=== PATIENT | male | born 1960 | race Two or more races ===

== ENCOUNTER 2016-11-12 13:51 | Emergency (ER) | payer OTHER ==
[2016-11-12 14:08] VITALS: BP 140/71; PULSE 55; TEMP 98.1; BMI 30.5
--- NOTE | 2016-11-12 14:28 | PDOC ---
History of Present Illness - General History Source: Patient Exam Limitations: No Limitations - History of Present Illness Initial Comments: 11/12/16 16:31 The patient is a 56 year old male, here with , with no significant past medical history who presents to the emergency department with rectal bleeding and fatigue after drinking a couple of days. He denies any complaints of pain. He reports his bowel movements are brown, but noted seeing blood after wiping on tissue paper today The patient reports also having complaints of feeling tired for the past 2 days after playing sports. He denies any recent fevers, chills, headache or dizziness. He denies any recent nausea, vomit, diarrhea or constipation. He denies any recent exertional chest pain or shortness of breath. Allergies: NKA Past surgical history: None reported. Social History: Nonsmoker. Denies recreational drug use. Primary Care Physician: Not on Staff <Santy Messina - Last Filed: 11/12/16 16:31> <Andrés Albright - Last Filed: 11/17/16 18:45> - General Chief Complaint: Rectal Bleed Stated Complaint: SICK Time Seen by Provider: 11/12/16 14:14 Past History <Santy Messina - Last Filed: 11/12/16 16:31> - Past Medical History GI Disorders: Yes Liver Disease: Yes - Psycho/Social/Smoking Cessation Hx Suicidal Ideation: No Smoking History: Never smoked Hx Alcohol Use: Yes Drug/Substance Use Hx: No Substance Use Type: Alcohol <Andrés Albright - Last Filed: 11/17/16 18:45> - Past Medical History Allergies/Adverse Reactions: Allergies Allergy/AdvReac Type Severity Reaction Status Date / Time No Known Allergies Allergy Verified 11/12/16 13:58 Home Medications: Ambulatory Orders NK [No Known Home Medication] 11/12/16 Review of Systems - Review of Systems Able to Perform ROS?: Yes Comments:: 11/12/16 16:31 CONSTITUTIONAL: +Generalized Weakness. No reported: Fever, Chills, Diaphoresis, Malaise, Loss of Appetite HEENT: No reported: Rhinorrhea, Nasal Congestion, Throat Pain, Throat Swelling, Difficulty Swallowing, Mouth Swelling, Ear Pain, Eye Pain, Visual Changes CARDIOVASCULAR: No reported: Chest Pain, Syncope, Palpitations, Irregular Heart Rate, Lightheadedness, Peripheral Edema RESPIRATORY: No reported: Cough, Shortness of Breath, SOB with Exertion, Orthopnea, Wheezing , Stridor, Hemoptysis GASTROINTESTINAL: No reported: Abdominal pain, Abdominal Distension, Nausea, Vomiting, Diarrhea, Constipation, Melena, Hematochezia GENITOURINARY: +rectal bleeding. No reported: Dysuria, Frequency, Urgency, Hesitancy, Flank Pain, Genital Pain MUSCULOSKELETAL: No reported: Myalgia, Arthralgia, Joint Swelling, Back pain, Neck Pain SKIN: No reported: Rash, Itching, Pallor HEMATOLOGIC/IMMUNOLOGIC: No reported: Easy Bleeding, Easy Bruising, Lymphadenopathy, Frequent infections ENDOCRINE: No reported: Unexplained Weight Gain, Unexplained Weight Loss, Heat Intolerance , Cold Intolerance NEUROLOGIC: No reported: Headache, Focal Weakness, Paresthesias, Vertigo, Lightheadedness, Unsteady Gait, Seizure, Mental Status Changes, Incontinence PSYCHIATRIC: No reported: Anxiety, Depression <Santy Messina - Last Filed: 11/12/16 16:31> *Physical Exam - Vital Signs Last Vital Signs Temp Pulse Resp BP Pulse Ox 98.1 F 55 L 18 140/71 99 11/12/16 13:55 11/12/16 13:55 11/12/16 13:55 11/12/16 13:55 11/12/16 13:55 - Physical Exam Comments: 11/12/16 16:31 GENERAL: The patient is awake, alert, and fully oriented, Nontoxic - in no acute distress. HEAD: Normocephalic, atraumatic. EYES: extraocular movements intact, sclera anicteric, conjunctiva clear. ENT: Normal voice, Moist mucous membranes. NECK: Normal range of motion, supple LUNGS: Breath sounds equal, clear to auscultation bilaterally. No wheezes, no rhonchi, no rales. HEART: Regular rate and rhythm, without murmur, rub or gallop. ABDOMEN: Soft, nontender, normoactive bowel sounds. No guarding, no rebound.No CVA tenderness RECTAL: No external hemorrhoids. No stool in the vault. EXTREMITIES: Normal range of motion, no edema. No clubbing or cyanosis. No cords , erythema, or tenderness. NEUROLOGICAL: No facial asymmetry, Normal speech. PSYCH: Normal mood, normal affect. SKIN: Warm, Dry, normal turgor. <Santy Messina - Last Filed: 11/12/16 16:31> - Vital Signs Last Vital Signs Temp Pulse Resp BP Pulse Ox 98.1 F 55 L 18 140/71 99 11/12/16 13:55 11/12/16 13:55 11/12/16 13:55 11/12/16 13:55 11/12/16 13:55 <Andrés Albright - Last Filed: 11/17/16 18:45> Heart Score/ECG Review - ECG Impressions Comment:: 11/12/16 16:47 Twelve-lead EKG was performed and reviewed by me. There is normal sinus rhythm with a rate of 54 T wave in lead 3 <Andrés Albright - Last Filed: 11/17/16 18:45> ED Treatment Course - LABORATORY CBC & Chemistry Diagram: 11/12/16 14:45 11/12/16 14:45 - ADDITIONAL ORDERS Additional order review: Laboratory Results 11/12/16 14:35 Stool Occult Blood Negative <Santy Messina - Last Filed: 11/12/16 16:31> - LABORATORY CBC & Chemistry Diagram: 11/12/16 14:45 11/12/16 14:45 <Andrés Albright - Last Filed: 11/17/16 18:45> Medical Decision Making - Medical Decision Making 11/12/16 14:29 56y M no known pmhx presents with complaint of feeling generally weak the past few days especially when he is playing sports. THe pt mentions drinking alot last weekend, and today he noticed some blood on his tissue when he was cleaning after a normal BM (no signs of melena/blood in the stool). Pt also endorses mild dysuria - no associated, cp, sob, diaphoresis, n/v, abd pain, back pain. Pts exam is unremarkable will send stool guaiac will ck cbc, cmp to r/o anemia, metabolic dernagement ekg to screen for acs A portion of this note was documented by scribe services under my direction. I have reviewed the details of the note, within reason, and agree with the documentation with the following case summary and management plan written by me 11/12/16 16:29 labs negative pt feeling improved and asymtomatic will d/c to fu with pmd return precuations were discussed I discussed the physical exam findings, ancillary test results and final diagnoses with the patient. I answered all of the patient's questions. The patient was satisfied with the care received and felt comfortable with the discharge plan and treatment plan. The patient will call their primary care physician within 24 hours to arrange follow-up and will return to the Emergency Department with any new, persistent or worsening symptoms. <Andrés Albright - Last Filed: 11/17/16 18:45> *DC/Admit/Observation/Transfer - Attestations Scribe Attestion: 11/12/16 16:09 Documentation prepared by Santy Messina, acting as director of medical review for Andrés Albright MD. <Santy Messina - Last Filed: 11/12/16 16:31> - Discharge Dispostion Admit: No <Andrés Albright - Last Filed: 11/17/16 18:45> Diagnosis at time of Disposition: Fatigue Qualifiers: Fatigue type: unspecified Qualified Code(s): R53.83 - Other fatigue - Discharge Dispostion Disposition: HOME Condition at time of disposition: Improved - Patient Instructions Printed Discharge Instructions: DI for Rectal Bleeding Additional Instructions: Return to the emergency department immediately with ANY new, persistent or worsening symptoms. You MUST call and follow up with your doctor tomorrow for further evaluation of your symptoms. Results were discussed with you. Please make sure your doctor reviews the results of your emergency evaluation. Print Language: CITIZEN OF [place]
[2016-11-12 16:04] LABS: BASOPHIL 0.6 % (0-2.0); EOSINOPHIL 1.9 % (0-4.5); MCH 29.9 pg (25.7-33.7); MEAN PLT VOLUME 8.7 fl (7.5-11.1); NEUTROPHILS 58.8 % (42.8-82.8); PLATELET COUNT 231 K/MM3 (134-434); RDW 13.5 % (11.9-15.9); WHITE BLOOD COUNT 7.6 K/mm3 (4.0-10.0)
[2016-11-12 16:16] LABS: ALBUMIN 4.2 g/dl (3.4-5.0); ALK PHOS 111 U/L (45-117); ANION GAP 6 (8-16); BILIRUBIN,TOTAL 0.5 mg/dL (0.2-1.0); CALCIUM 9.3 mg/dL (8.5-10.1); CO2 30 mmol/L (21-32); COCKROFT - GAULT 147.41; CREATININE 0.7 mg/dL (0.7-1.3); GLUCOSE,RANDOM 91 mg/dL (74-106); SGOT/AST 33 U/L (15-37); SGPT/ALT 48 U/L (12-78); TOT PROT 7.6 g/dl (6.4-8.2)
--- NOTE | 2016-11-13 09:28 | EKG ---
Test Reason : Blood Pressure : / mmHG Vent. Rate : 054 BPM Atrial Rate : 054 BPM P-R Int : 188 ms QRS Dur : 090 ms QT Int : 448 ms P-R-T Axes : 038 -16 016 degrees QTc Int : 424 ms SINUS BRADYCARDIA MODERATE VOLTAGE CRITERIA FOR LVH, MAY BE NORMAL VARIANT NO PREVIOUS ECGS AVAILABLE Confirmed by FAUSTINA CORTEZ MD ([id number]) on 11/13/2016 9:28:48 AM Referred By: Confirmed By:FAUSTINA CORTEZ MD
== END 2016-11-12 16:57 | disposition home or self-care (01) ==
LOC: JER 13:51
DX: R53.83 Other fatigue (principal)
CPT/HCPCS: 36415; 80053; 82272; 85025; 93005; 93010; 99282-25

== ENCOUNTER 2019-09-26 05:30 | Inpatient (IN) | payer SELFPAY ==
[2019-09-26] MEDS ORDERED: SODIUM CHLORIDE 1,000 ML IV STA (06:16)
[2019-09-26] MEDS ORDERED: ACETAMINOPHEN 1000 MG/100 ML VIAL (NON FORMULARY) IVPB ONE (06:16)
[2019-09-26] MEDS ORDERED: ONDANSETRON 4 MG/2 ML VIAL IVPUSH ONE (06:16)
--- NOTE | 2019-09-26 06:16 | PDOC ---
History of Present Illness - General Chief Complaint: Pain Stated Complaint: ABDOMINAL PAIN Time Seen by Provider: 09/26/19 05:54 History Source: Patient Exam Limitations: No Limitations - History of Present Illness Initial Comments: 59 yo M with no pmhx presents to the emergency department with LLQ pain that has been ongoing for 2.5 hours. Per the patient, he states that it occurred suddenly while at rest. Denies inciting msk event. Per the patient, the pain is sharp, non radiating, and does not have relieving or aggravating factors. The patient endorses nausea but denies vomiting, diarrhea, hematochezia, dysuria, hematuria, testicular pain, and penile pain. Denies hx of nephrolithiasis. Per the patient, he denies abdominal surgery. Allergies: NKDA Shx: cataracts Social: Denies tobacco and substance abuse. Endorses recreational ETOH use. Past History - Past Medical History Allergies/Adverse Reactions: Allergies Allergy/AdvReac Type Severity Reaction Status Date / Time No Known Allergies Allergy Verified 09/26/19 05:49 Home Medications: Ambulatory Orders NK [No Known Home Medication] 11/12/16 COPD: No GI Disorders: Yes Liver Disease: Yes - Psycho Social/Smoking Cessation Hx Smoking History: Never smoked Hx Alcohol Use: Yes Drug/Substance Use Hx: No Substance Use Type: Alcohol Review of Systems - Review of Systems Able to Perform ROS?: Yes Is the patient limited Green[place]ic proficient: No Constitutional: No: Chills, Diaphoresis, Fever, Weakness HEENTM: No: Eye Pain, Ear Pain, Nose Pain, Throat Pain, Mouth Pain Respiratory: No: Cough, Shortness of Breath, Productive cough, Hemoptysis Cardiac (ROS): No: Chest Pain, Lightheadedness, Palpitations, Chest Tightness ABD/GI: Yes: Nausea, Abdominal cramping. No: Constipated, Diarrhea, Rectal Bleeding, Vomiting, Tarry Stools : No: Burning, Dysuria, Hematuria, Incontinence Musculoskeletal: No: Back Pain, Joint Pain, Neck Pain Integumentary: No: Bruising, Erythema, Rash Neurological: No: Headache, Numbness, Tingling, Tremors Psychiatric: No: Stressors Hematologic/Lymphatic: No: Anemia *Physical Exam - Vital Signs Last Vital Signs Temp Pulse Resp BP Pulse Ox 97.7 F 62 18 155/94 99 09/26/19 05:44 09/26/19 05:44 09/26/19 05:44 09/26/19 05:44 09/26/19 05:44 - Physical Exam General Appearance: Yes: Nourished, Appropriately Dressed. No: Apparent Distress, Intoxicated HEENT: positive: EOMI, BIBI, Normal Voice, Symmetrical, Pharynx Normal, Hearing Grossly Normal. negative: Pale Conjunctivae, Scleral Icterus (R), Scleral Icterus (L), Muffled/Hoarse voice, Pharyngeal Erythema, Tonsillar Exudate, Tonsillar Erythema, Nasal Congestion, Rhinorrhea, Excessive drooling Neck: positive: Trachea midline, Supple. negative: Tender, Lymphadenopathy (R) , Lymphadenopathy (L), Tender lateral, Tender midline Respiratory/Chest: positive: Lungs Clear, Normal Breath Sounds. negative: Chest Tender, Respiratory Distress, Accessory Muscle Use, Crackles, Rales, Rhonchi, Stridor, Wheezing Cardiovascular: positive: Regular Rhythm, Regular Rate, S1, S2. negative: Systolic Murmur Gastrointestinal/Abdominal: positive: Normal Bowel Sounds, Tender (llq), Flat, Soft. negative: Distended, Guarding, Rebound Lymphatic: negative: Adenopathy Musculoskeletal: positive: Normal Inspection. negative: CVA Tenderness, Vertebral Tenderness Extremity: positive: Normal Capillary Refill, Normal Inspection, Normal Range of Motion. negative: Tender Integumentary: positive: Normal Color, Dry, Warm. negative: Swelling, Ecchymosis Neurologic: positive: Alert, Normal Mood/Affect ED Treatment Course - LABORATORY CBC & Chemistry Diagram: 09/26/19 06:19 09/26/19 06:19 Medical Decision Making - Medical Decision Making 59 yo M with no pmhx presents to the emergency department with LLQ pain that has been ongoing for 2.5 hours. Per the patient, he states that it occurred suddenly while at rest. Initial vitals: Initial Vital Signs Temp Pulse Resp BP Pulse Ox 97.7 F 62 18 155/94 99 09/26/19 05:44 09/26/19 05:44 09/26/19 05:44 09/26/19 05:44 09/26/19 05:44 Work up: patient presents to the emergency department with LLQ pain with nausea. ddx: colitis vs ischemic colitis vs UTI vs nephrolithiasis vs diverticulitis vs msk strain Patient was signed out to day team Discharge - Discharge Information Problems reviewed: Yes Clinical Impression/Diagnosis: Abdominal pain Qualifiers: Abdominal location: left lower quadrant Qualified Code(s): R10.32 - Left lower quadrant pain Condition: Stable - Follow up/Referral - Patient Discharge Instructions - Post Discharge Activity
[2019-09-26] MEDS ORDERED: ONDANSETRON 4 MG/2 ML VIAL ONE (06:30)
[2019-09-26] MEDS ORDERED: ACETAMINOPHEN INJECTION 100 ML IVPB ONE (06:30)
[2019-09-26 06:47] LABS: BASO % 0.7 % (0-2.0); EOS % 2.2 % (0-4.5); HEMATOCRIT 39.2 % (35.4-49); HEMOGLOBIN 13.5 GM/dL (11.7-16.9); LYMPH % 15.8 % (8-40); MCH 29.9 pg (25.7-33.7); MCHC 34.4 g/dl (32.0-35.9); MEAN PLT VOLUME 8.3 fl (7.5-11.1); MONO % 4.2 % (3.8-10.2); NEUT % 77.1 % (42.8-82.8); PLATELET COUNT 179 K/MM3 (134-434); RBC 4.51 M/mm3 (4.00-5.60); RDW 13.7 % (11.9-15.9); WHITE BLOOD COUNT 7.9 K/mm3 (4.0-10.0)
[2019-09-26 06:53] LABS: EPI CELLS 6.2 /HPF (0-5/HPF); HYALINE CASTS 18 /lpf (0-8); URINE APPEARANCE CLEAR; URINE BACTERIA 5.1 /hpf (NEGATIVE); URINE BILIRUBIN NEGATIVE (NEGATIVE); URINE COLOR YELLOW; URINE GLUCOSE (UA) NEGATIVE (NEGATIVE); URINE KETONE NEGATIVE (NEGATIVE); URINE LEUK ESTERASE NEGATIVE (NEGATIVE); URINE NITRITE NEGATIVE (NEGATIVE); URINE PROTEIN 1+ (NEGATIVE); URINE RBC 2 /hpf (0-4); URINE UROBILINOGEN 0.2 mg/dL (0.2-1.0); URINE WBC 5 /hpf (0-5)
--- NOTE | 2019-09-26 07:10 | PDOC ---
*Physical Exam - Vital Signs Last Vital Signs Temp Pulse Resp BP Pulse Ox 97.7 F 62 18 155/94 99 09/26/19 05:44 09/26/19 05:44 09/26/19 05:44 09/26/19 05:44 09/26/19 05:44 - Physical Exam General Appearance: Yes: Nourished, Appropriately Dressed, Thin. No: Apparent Distress HEENT: positive: EOMI, BIBI, Normal Voice, Symmetrical. negative: Scleral Icterus (R), Scleral Icterus (L) Neck: positive: Trachea midline. negative: Tender, Rigid, Lymphadenopathy (R), Lymphadenopathy (L) Respiratory/Chest: positive: Lungs Clear, Normal Breath Sounds. negative: Chest Tender, Respiratory Distress, Accessory Muscle Use, Crackles, Rales, Rhonchi Cardiovascular: positive: Regular Rhythm, Regular Rate. negative: Edema Gastrointestinal/Abdominal: positive: Normal Bowel Sounds, Tender (LLQ, describes 4/10 pain when palpated), Flat, Soft Musculoskeletal: positive: Normal Inspection. negative: CVA Tenderness Extremity: positive: Normal Capillary Refill, Normal Inspection, Normal Range of Motion, Pelvis Stable, Other (stands and walks without issues). negative: Tender Integumentary: positive: Normal Color, Dry, Warm Neurologic: positive: Fully Oriented, Alert, Normal Mood/Affect, Normal Response , Motor Strength 12/04 ED Treatment Course - LABORATORY CBC & Chemistry Diagram: 09/26/19 06:19 09/26/19 06:19 - ADDITIONAL ORDERS Additional order review: Laboratory Results 09/26/19 06:19 Urine Color Yellow Urine Appearance Clear Urine pH 5.0 Ur Specific [place] 1.024 Urine Protein 1+ H Urine Glucose (UA) Negative Urine Ketones Negative Urine Blood Negative Urine Nitrite Negative Urine Bilirubin Negative Urine Urobilinogen 0.2 Ur Leukocyte Esterase Negative Urine WBC (Auto) 5 Urine RBC (Auto) 2 Urine Casts (Auto) 18 U Epithel Cells (Auto) 6.2 U Sm Round Cell (Auto) None Urine Bacteria (Auto) 5.1 - Medications Given in the ED: ED Medications Discontinued Medications Generic Name Dose Route Start Last Admin Trade Name Freq PRN Reason Stop Dose Admin Acetaminophen 1,000 mg 09/26/19 06:16 09/26/19 06:37 Ofirmev Injection - IVPB 09/26/19 06:17 1,000 mg ONCE ONE Administration Ondansetron HCl 4 mg 09/26/19 06:16 09/26/19 06:37 Zofran Injection IVPUSH 09/26/19 06:17 4 mg ONCE ONE Administration Medical Decision Making - Medical Decision Making 09/26/19 07:09 Signed out to me by Dr. Mancilla. Patient is a 59M with no other PMH presenting with 3 hours of LLQ pain with nausea. Denies any or other GI symptoms. Labs show urine negative for blood. Pending labs at this time. Exam shows LLQ tenderness. Given Zofran and acetaminophen for pain. 1L NS given. Pending labs and will need CT scan to evaluate for intra-abdominal pathology. [] labs [] CT scan [] dispo 09/26/19 07:17 Labs notable for: - UA WNL - CBC WNL - WBC WNL - lactate 2.1, already given 1L NS 09/26/19 09:27 CT scan reveals L renal infarct. Patient does not have any known hypercoagulable conditions or AFIB. Will admit for further evaluation, anticoagulation, and intervention. Likely does not require emergent surgery, can be anticoagulated with renal/ vascular eval for thrombectomy. Patient has no PMD. Pain under control at this time. Getting ECG and CXR for admission. 09/26/19 09:[address] Landis with admitting team. Vascular consulted by admitting team, good for admit to tele under Dr. Mosquera. 09/26/19 10:19 ECG shows sinus bradycardia, incomplete RBBB, HR 54, QRS 92, QTc 428, no ischemic changes or TWI. Discharge - Discharge Information Problems reviewed: Yes Clinical Impression/Diagnosis: Abdominal pain Qualifiers: Abdominal location: left lower quadrant Qualified Code(s): R10.32 - Left lower quadrant pain Condition: Stable - Follow up/Referral - Patient Discharge Instructions - Post Discharge Activity
[2019-09-26 07:12] LABS: ALBUMIN 3.6 g/dl (3.4-5.0); BILIRUBIN,TOTAL 0.4 mg/dL (0.2-1); CALCIUM 8.7 mg/dL (8.5-10.1); POTASSIUM 3.8 mmol/L (3.5-5.1); TOT PROT 6.8 g/dl (6.4-8.2)
[2019-09-26] MEDS ORDERED: HEPARIN NA (PORCINE) 5,000 UNITS/ML 1ML VIAL IVPUSH PRN ×2 (10:41)
--- NOTE | 2019-09-26 11:12 | HP ---
CHIEF COMPLAINT: left mid-abdominal pain PCP: None HISTORY OF PRESENT ILLNESS: Patient is a 59 year old male with no significant past medical history presented to the ED due to sudden onset severe left-sided mid abdominal pain that started at 3am this morning. Patient reported pain occurred suddenly 10/10 , sharp pain in the left mid-abdominal area, with no aggravating factors. Patient denies any fever, chills, headache, chest pain, SOB, nausea, vomiting, diarrhea, constipation, urinary symptoms. Patient reported he had routine colonoscopy done a year ago, but could not remember the GI doctor, and was told everything was normal. ER course was notable for: (1)cT abdomen with contrast - hypoperfusion to the lower pole of the left kidney consistent with a renal infarct. (2) (3) Recent Travel:denies PAST MEDICAL HISTORY: none PAST SURGICAL HISTORY: Left cataract surgery Social History: Smoking:denies Alcohol:occasional EtOH use Drugs: denies Family History Mother - colon CA FAther - healthy, at 100 yo Allergies No Known Allergies Allergy (Verified 09/26/19 05:49) HOME MEDICATIONS: Home Medications Medication Instructions Recorded NK [No Known Home Medication] 11/12/16 REVIEW OF SYSTEMS CONSTITUTIONAL: Absent: fever, chills, diaphoresis, generalized weakness, malaise, loss of appetite, weight change HEENT: Absent: rhinorrhea, nasal congestion, throat pain, throat swelling, difficulty swallowing, mouth swelling, ear pain, eye pain, visual changes CARDIOVASCULAR: Absent: chest pain, syncope, palpitations, irregular heart rate, lightheadedness , peripheral edema RESPIRATORY: Absent: cough, shortness of breath, dyspnea with exertion, orthopnea, wheezing, stridor, hemoptysis GASTROINTESTINAL:abdominal pain Absent: abdominal distension, nausea, vomiting, diarrhea, constipation, melena, hematochezia GENITOURINARY: Absent: dysuria, frequency, urgency, hesitancy, hematuria, flank pain, genital pain MUSCULOSKELETAL: Absent: myalgia, arthralgia, joint swelling, back pain, neck pain SKIN: Absent: rash, itching, pallor HEMATOLOGIC/IMMUNOLOGIC: Absent: easy bleeding, easy bruising, lymphadenopathy, frequent infections ENDOCRINE: Absent: unexplained weight gain, unexplained weight loss, heat intolerance, cold intolerance NEUROLOGIC: Absent: headache, focal weakness or paresthesias, dizziness, unsteady gait, seizure, mental status changes, bladder or bowel incontinence PSYCHIATRIC: Absent: anxiety, depression, suicidal or homicidal ideation, hallucinations. PHYSICAL EXAMINATION Vital Signs - 24 hr 09/26/19 05:44 Temperature 97.7 F Pulse Rate 62 Respiratory 18 Rate Blood Pressure 155/94 O2 Sat by Pulse 99 Oximetry (%) GENERAL: Awake, alert, and fully oriented, in no acute distress. HEAD: Normal with no signs of trauma. EYES: PERRLA, EOMI, sclera anicteric, conjunctiva clear. EARS, NOSE, THROAT:Moist mucous membranes. NECK: Normal range of motion, supple. LUNGS: Breath sounds equal, clear to auscultation bilaterally. HEART: Regular rate and rhythm, normal S1 and S2 without murmur, rub or gallop. ABDOMEN: Soft, +Left mid-abdominal tenderness, not distended, normoactive bowel sounds. MUSCULOSKELETAL: Normal range of motion at all joints. No CVA tenderness. LOWER EXTREMITIES: 2+ pulses, warm, well-perfused. No peripheral edema. NEUROLOGICAL: Cranial nerves II-XII intact. Normal speech. Normal gait. PSYCHIATRIC: Cooperative. Good eye contact. Appropriate mood and affect. SKIN: Warm, dry, normal turgor. Laboratory Results - last 24 hr 09/26/19 09/26/19 09/26/19 06:19 06:19 06:19 WBC 7.9 RBC 4.51 Hgb 13.5 Hct 39.2 MCV 87.0 MCH 29.9 MCHC 34.4 RDW 13.7 Plt Count 179 D MPV 8.3 Absolute Neuts (auto) 6.1 Neutrophils % 77.1 D Lymphocytes % 15.8 D Monocytes % 4.2 Eosinophils % 2.2 Basophils % 0.7 Nucleated RBC % 0 Sodium 141 Potassium 3.8 Chloride 110 H Carbon Dioxide 24 Anion Gap 7 L BUN 18.0 Creatinine 1.0 Est GFR (CKD-EPI)AfAm 95.06 Est GFR (CKD-EPI)NonAf 82.02 Random Glucose 112 H Lactic Acid 2.1 H Calcium 8.7 Total Bilirubin 0.4 AST 30 ALT 40 Alkaline Phosphatase 108 Total Protein 6.8 Albumin 3.6 Urine Color Urine Appearance Urine pH Ur Specific [place] Urine Protein Urine Glucose (UA) Urine Ketones Urine Blood Urine Nitrite Urine Bilirubin Urine Urobilinogen Ur Leukocyte Esterase Urine WBC (Auto) Urine RBC (Auto) Urine Casts (Auto) U Epithel Cells (Auto) U Sm Round Cell (Auto) Urine Bacteria (Auto) 09/26/19 06:19 WBC RBC Hgb Hct MCV MCH MCHC RDW Plt Count MPV Absolute Neuts (auto) Neutrophils % Lymphocytes % Monocytes % Eosinophils % Basophils % Nucleated RBC % Sodium Potassium Chloride Carbon Dioxide Anion Gap BUN Creatinine Est GFR (CKD-EPI)AfAm Est GFR (CKD-EPI)NonAf Random Glucose Lactic Acid Calcium Total Bilirubin AST ALT Alkaline Phosphatase Total Protein Albumin Urine Color Yellow Urine Appearance Clear Urine pH 5.0 Ur Specific [place] 1.024 Urine Protein 1+ H Urine Glucose (UA) Negative Urine Ketones Negative Urine Blood Negative Urine Nitrite Negative Urine Bilirubin Negative Urine Urobilinogen 0.2 Ur Leukocyte Esterase Negative Urine WBC (Auto) 5 Urine RBC (Auto) 2 Urine Casts (Auto) 18 U Epithel Cells (Auto) 6.2 U Sm Round Cell (Auto) None Urine Bacteria (Auto) 5.1 ASSESSMENT/PLAN: Patient is a 59 year old male with no significant past medical history presented to the ED due to sudden onset severe left-sided mid abdominal pain that started at 3am this morning. #Abdominal pain likely 2/2 Left renal infarct -CT abdomen with contrast -hypoperfusion to the lower pole of the left kidney consistent with a renal infarct. -unclear etiology at this time -will monitor on tele to r/o cardioembolic source -echo ordered -will start heparin drip awaiting surgery recs -Vascular surgery (Dr. Oneal) consulted. -NEphrology (Dr. Roman) consulted. -Urology (Dr. Soto) consulted. -Heme-onc (DR. Dunham) consulted. #Elevated blood pressure -BP persistently elevated, possibly in setting of renal artery occlusion -renal function normal -will start Lisinopril #FEN -Not on any standing fluids -Electrolytes wnl, routine bmp monitoring -Sodium controlled diet #Prophylaxis -Heparin drip #Disposition -full code -admit to tele Visit type - Emergency Visit Emergency Visit: Yes ED Registration Date: 09/26/19 Care time: The patient presented to the Emergency Department on the above date and was hospitalized for further evaluation of their emergent condition. - New Patient This patient is new to me today: Yes Date on this admission: 09/26/19 - Critical Care Critical Care patient: No ATTENDING PHYSICIAN STATEMENT I saw and evaluated the patient. I reviewed the resident's note and discussed the case with the resident. I agree with the resident's findings and plan as documented. SUBJECTIVE: OBJECTIVE: ASSESSMENT AND PLAN:
[2019-09-26] MEDS ORDERED: HEPARIN NA (PORCINE) 5,000 UNITS/ML 1ML VIAL ONE (11:20)
[2019-09-26] MEDS ORDERED: HEPARIN INFUSION - 25,000 UNITS/500 ML INFUS.BAG IVPB ONE (11:20)
[2019-09-26 12:26] LABS: INR 1.05 (0.83-1.09); PROTHROMBIN TIME (PATIENT) 12.4 SEC (9.7-13.0)
[2019-09-26 12:28] LABS: ACTIVATED PTT 33.4 SECONDS (25.2-36.5)
[2019-09-26] MEDS: HEPARIN INFUSION - 25,000 UNITS/500 ML INFUS.BAG IV SCH (12:45)
--- NOTE | 2019-09-26 12:46 | CON.GU ---
Consult Consult Specialty:: Reason for Consultation:: L renal infarction - History of Present Illness Chief Complaint: L mid abd pain History of Present Illness: 59 year old male with no significant past medical history presented to the ED due to sudden onset severe left-sided mid abdominal pain that started at 3am this morning. Patient reported pain occurred suddenly 10/10, sharp pain in the left mid-abdominal area, with no aggravating factors. Patient denies any fever, chills, headache, chest pain, SOB, nausea, vomiting, diarrhea, constipation, urinary symptoms. Patient reported he had routine colonoscopy done a year ago, but could not remember the GI doctor, and was told everything was normal. cons req. - History Source History Provided By: Patient, Medical Record Limitations to Obtaining History: No Limitations - Alcohol/Substance Use Hx Alcohol Use: Yes - Smoking History Smoking history: Never smoked Home Medications - Allergies Allergies/Adverse Reactions: Allergies Allergy/AdvReac Type Severity Reaction Status Date / Time No Known Allergies Allergy Verified 09/26/19 05:49 - Home Medications Home Medications: Ambulatory Orders NK [No Known Home Medication] 11/12/16 Review of Systems - Review of Systems Genitourinary: reports: Flank Pain Physical Exam- Vital Signs: Vital Signs Temperature 97.7 F 09/26/19 05:44 Pulse Rate 62 09/26/19 05:44 Respiratory Rate 18 09/26/19 05:44 Blood Pressure 155/94 09/26/19 05:44 O2 Sat by Pulse Oximetry (%) 99 09/26/19 05:44 Constitutional: Yes: Well Nourished, No Distress, Calm Eyes: Yes: WNL Cardiovascular: Yes: WNL Respiratory: Yes: WNL Gastrointestinal: Yes: WNL, Soft Renal/: Yes: CVA Tenderness - Left Kidneys: Yes: Flank Pain Left Pelvis: Yes: WNL Testicles: Yes: WNL Scrotum: Yes: WNL Penis: Yes: WNL Prostate Exam: Yes: WNL Musculoskeletal: Yes: WNL Extremities: Yes: WNL Labs: CBC, BMP 09/26/19 06:19 09/26/19 06:19 Imaging - Results Cat Scan: Report Reviewed Problem List - Problems (1) Renal infarct Assessment/Plan: IR cons, anticoagulate Code(s): N28.0 - ISCHEMIA AND INFARCTION OF KIDNEY (2) Abdominal pain Code(s): R10.9 - UNSPECIFIED ABDOMINAL PAIN Qualifiers: Abdominal location: left lower quadrant Qualified Code(s): R10.32 - Left lower quadrant pain
--- NOTE | 2019-09-26 14:25 | CONSULT ---
Consultation: REQUESTING PROVIDER: Dr. Landis CONSULT REQUEST: We have been asked to medically evaluate this patient for renal infarct HISTORY OF PRESENT ILLNESS: 59 year old male with no pmh here for acute left sided abdominal pain beginning at 3am this morning. Reports never having that pain before. Not associated with chest pain, shortness of breath, nausea, vomiting, diarrhea, fevers or chills. Reports that the only thing he can attribute to it is that he went for a run ( jogging) yesterday for 2 miles and had not jogged in several years. Reported initially that the pain as a 10/10 that does not radiate anywhere. Screening colo done last year, reported as normal. Since admission, pain is reported to have improved from 10/10 to 5/10. REVIEW OF SYSTEMS: CONSTITUTIONAL: Absent: fever, chills, diaphoresis, generalized weakness, malaise, loss of appetite, weight change HEENT: Absent: rhinorrhea, nasal congestion, throat pain, throat swelling, difficulty swallowing, mouth swelling, ear pain, eye pain, visual changes CARDIOVASCULAR: Absent: chest pain, syncope, palpitations, irregular heart rate, lightheadedness , peripheral edema RESPIRATORY: Absent: cough, shortness of breath, dyspnea with exertion, orthopnea, wheezing, stridor, hemoptysis GASTROINTESTINAL:abdominal pain Absent: abdominal distension, nausea, vomiting, diarrhea, constipation, melena , hematochezia GENITOURINARY: Absent: dysuria, frequency, urgency, hesitancy, hematuria, flank pain, genital pain MUSCULOSKELETAL: Absent: myalgia, arthralgia, joint swelling, back pain, neck pain SKIN: Absent: rash, itching, pallor HEMATOLOGIC/IMMUNOLOGIC: Absent: easy bleeding, easy bruising, lymphadenopathy, frequent infections ENDOCRINE: Absent: unexplained weight gain, unexplained weight loss, heat intolerance, cold intolerance NEUROLOGIC: Absent: headache, focal weakness or paresthesias, dizziness, unsteady gait, seizure, mental status changes, bladder or bowel incontinence PSYCHIATRIC: Absent: anxiety, depression, suicidal or homicidal ideation, hallucinations. PHYSICAL EXAMINATION Vital Signs - 24 hr 09/26/19 05:44 Temperature 97.7 F Pulse Rate 62 Respiratory 18 Rate Blood Pressure 155/94 O2 Sat by Pulse 99 Oximetry (%) GENERAL: A&Ox3, no acute distress EYES: PERRLA, EOMI ENT: Moist mucus membranes NECK: No JVD LUNGS: CTA, no wheezes HEART: RRR, no murmurs ABDOMEN: Soft, mild tenderness in LLQ and LUQ, BS present MUSCULOSKELETAL: No CVA Tenderness EXTREMITIES: 2+ pulses, no edema. NEUROLOGICAL: Cranial nerves II-XII intact. Laboratory Results - last 24 hr 09/26/19 09/26/19 09/26/19 06:19 06:19 06:19 WBC 7.9 RBC 4.51 Hgb 13.5 Hct 39.2 MCV 87.0 MCH 29.9 MCHC 34.4 RDW 13.7 Plt Count 179 D MPV 8.3 Absolute Neuts (auto) 6.1 Neutrophils % 77.1 D Lymphocytes % 15.8 D Monocytes % 4.2 Eosinophils % 2.2 Basophils % 0.7 Nucleated RBC % 0 PT with INR INR PTT (Actin FS) Sodium 141 Potassium 3.8 Chloride 110 H Carbon Dioxide 24 Anion Gap 7 L BUN 18.0 Creatinine 1.0 Est GFR (CKD-EPI)AfAm 95.06 Est GFR (CKD-EPI)NonAf 82.02 Random Glucose 112 H Lactic Acid 2.1 H Calcium 8.7 Total Bilirubin 0.4 AST 30 ALT 40 Alkaline Phosphatase 108 Total Protein 6.8 Albumin 3.6 Urine Color Urine Appearance Urine pH Ur Specific [place] Urine Protein Urine Glucose (UA) Urine Ketones Urine Blood Urine Nitrite Urine Bilirubin Urine Urobilinogen Ur Leukocyte Esterase Urine WBC (Auto) Urine RBC (Auto) Urine Casts (Auto) U Epithel Cells (Auto) U Sm Round Cell (Auto) Urine Bacteria (Auto) 09/26/19 09/26/19 06:19 11:38 WBC RBC Hgb Hct MCV MCH MCHC RDW Plt Count MPV Absolute Neuts (auto) Neutrophils % Lymphocytes % Monocytes % Eosinophils % Basophils % Nucleated RBC % PT with INR 12.40 INR 1.05 PTT (Actin FS) 33.4 Sodium Potassium Chloride Carbon Dioxide Anion Gap BUN Creatinine Est GFR (CKD-EPI)AfAm Est GFR (CKD-EPI)NonAf Random Glucose Lactic Acid Calcium Total Bilirubin AST ALT Alkaline Phosphatase Total Protein Albumin Urine Color Yellow Urine Appearance Clear Urine pH 5.0 Ur Specific [place] 1.024 Urine Protein 1+ H Urine Glucose (UA) Negative Urine Ketones Negative Urine Blood Negative Urine Nitrite Negative Urine Bilirubin Negative Urine Urobilinogen 0.2 Ur Leukocyte Esterase Negative Urine WBC (Auto) 5 Urine RBC (Auto) 2 Urine Casts (Auto) 18 U Epithel Cells (Auto) 6.2 U Sm Round Cell (Auto) None Urine Bacteria (Auto) 5.1 Active Medications Generic Name Dose Route Start Last Admin Trade Name Freq PRN Reason Stop Dose Admin Heparin Sodium (Porcine) 1,000 unit 09/26/19 10:41 Heparin - IVPUSH PRN PRN Heparin Heparin Sodium (Porcine) 5,000 unit 09/26/19 10:41 09/26/19 12:45 Heparin - IVPUSH 5,000 unit PRN PRN Administration Heparin Heparin Sodium/Dextrose 25,000 units in 500 mls @ 20 mls/hr 09/26/19 10:45 12:45 Heparin Infusion - IV 1,000 units/hr TITR VERONICA 20 mls/hr Administration Protocol 1,000 UNITS/HR ASSESSMENT/PLAN: 59 year old male with no pmh here for acute left sided abdominal pain beginning at 3am this morning, found to have acute left sided inferior renal infarct #Left Renal Infarction: unclear etiology at this point in workup, most commonly this would be related to an embolus from atrial fibrillation vs dislodged aortic plaque vs thrombotic etiology. At this point, difficult to say if the infarct is acute or chronic in nature given relative normalcy of urinalysis (1+ protein and minimal blood) -EKG shows sinus bradycardia with incomplete right bundle branch block, monitor on telemetry for signs of atrial fibrillation, may benefit from holter monitor if atrial fibrillation is not found during the hospital stay -start heparin ggt and transition to oral anticoagulant -recommend heme/onc consultation of etiology of infarct is not found -pain control per primary team -repeat BMP for renal function in ABBEY Vizcarra D.O., PGY-[address] Chris Dispo: We will continue to follow the patient. Thank you for this consultative opportunity. Visit type - Emergency Visit Emergency Visit: Yes ED Registration Date: 09/26/19 Care time: The patient presented to the Emergency Department on the above date and was hospitalized for further evaluation of their emergent condition. - New Patient This patient is new to me today: Yes Date on this admission: 09/26/19 - Critical Care Critical Care patient: No ATTENDING PHYSICIAN STATEMENT I saw and evaluated the patient. I reviewed the resident's note and discussed the case with the resident. I agree with the resident's findings and plan as documented. SUBJECTIVE: OBJECTIVE: ASSESSMENT AND PLAN:
--- NOTE | 2019-09-26 15:49 | CONSULT ---
<Anant Ricci - Last Filed: 09/26/19 15:43> - Consultation REQUESTING PROVIDER: CONSULT REQUEST: We have been asked to surgically evaluate this patient for Left renal artery infarct PCP:Rodger Mosquera MD HISTORY OF PRESENT ILLNESS: VASCULAR 59yo M presented to the ED with complaints of Lt abd/back pain that started this morning. Pt does admit he has been jogging for the past few days and first attributed pain to that. Pt denies any medical issues or history of blood clots or renal disease. Pt states that pain has now completely resolved. Pt denies h/o vascular disease or surgery PMHx: denies Home Medications Medication Instructions Recorded NK [No Known Home Medication] 11/12/16 Allergies Allergy/AdvReac Type Severity Reaction Status Date / Time No Known Allergies Allergy Verified 09/26/19 05:49 PHYSICAL EXAM: GENERAL: Awake, alert, and fully oriented, in no acute distress. HEAD: Normal with no signs of trauma. EYES: PERRL, sclera anicteric, conjunctiva clear. NECK: Normal ROM, supple without lymphadenopathy, JVD, or masses. LUNGS: breathing comfortably ABDOMEN: Soft, nontender, not distended, no guarding, no rebound, no masses. No organomegaly. MUSCULOSKELETAL: Normal ROM at all joints. No bony deformities or tenderness. No CVA tenderness. UPPER EXTREMITIES: 2+ pulses, warm, well-perfused. No cyanosis. Cap refill <2 seconds. No peripheral edema. LOWER EXTREMITIES: 2+ pulses, warm, well-perfused. No calf tenderness. No peripheral edema. NEUROLOGICAL: Normal speech, gait not observed. PSYCH: Cooperative. Good eye contact. Appropriate mood and affect. SKIN: Warm, dry, normal turgor, no rashes or lesions noted. Vital Signs Temperature 97.7 F 09/26/19 05:44 Pulse Rate 62 09/26/19 05:44 Respiratory Rate 18 09/26/19 05:44 Blood Pressure 155/94 09/26/19 05:44 O2 Sat by Pulse Oximetry (%) 99 09/26/19 05:44 Lab Results WBC 7.9 K/mm3 (4.0-10.0) 09/26/19 06:19 RBC 4.51 M/mm3 (4.00-5.60) 09/26/19 06:19 Hgb 13.5 GM/dL (11.7-16.9) 09/26/19 06:19 Hct 39.2 % (35.4-49) 09/26/19 06:19 MCV 87.0 fl (80-96) 09/26/19 06:19 MCHC 34.4 g/dl (32.0-35.9) 09/26/19 06:19 RDW 13.7 % (11.9-15.9) 09/26/19 06:19 Plt Count 179 K/MM3 (134-434) D 09/26/19 06:19 Sodium 141 mmol/L (136-145) 09/26/19 06:19 Potassium 3.8 mmol/L (3.5-5.1) 09/26/19 06:19 Chloride 110 mmol/L (98-107) H 09/26/19 06:19 Carbon Dioxide 24 mmol/L (21-32) 09/26/19 06:19 Anion Gap 7 MMOL/L (8-16) L 09/26/19 06:19 BUN 18.0 mg/dL (7-18) 09/26/19 06:19 Creatinine 1.0 mg/dL (0.55-1.3) 09/26/19 06:19 Random Glucose 112 mg/dL (74-106) H 09/26/19 06:19 Calcium 8.7 mg/dL (8.5-10.1) 09/26/19 06:19 INR 1.05 (0.83-1.09) 09/26/19 11:38 <Thanh Oneal - Last Filed: 09/26/19 19:47> - Consultation REQUESTING PROVIDER: CONSULT REQUEST: We have been asked to surgically evaluate this patient for ( specify). PCP:Rodger Mosquera MD HISTORY OF PRESENT ILLNESS: PMHx: PSHx: Home Medications Medication Instructions Recorded NK [No Known Home Medication] 11/12/16 Allergies Allergy/AdvReac Type Severity Reaction Status Date / Time No Known Allergies Allergy Verified 09/26/19 05:49 REVIEW OF SYSTEMS: CONSTITUTIONAL: Absent: fever, chills, diaphoresis, generalized weakness, malaise, loss of appetite, weight change CARDIOVASCULAR: Absent: chest pain, syncope, palpitations, irregular heart rate, lightheadedness , peripheral edema RESPIRATORY: Absent: cough, shortness of breath, dyspnea with exertion, wheezing, stridor, hemoptysis GASTROINTESTINAL: Absent: abdominal pain, abdominal distension, nausea, vomiting, diarrhea, constipation, melena, hematochezia GENITOURINARY: Absent: dysuria, frequency, urgency, hesitancy, hematuria, flank pain, genital pain MUSCULOSKELETAL: Absent: myalgia, arthralgia, joint swelling, back pain, neck pain SKIN: Absent: rash, itching, pallor HEMATOLOGIC/IMMUNOLOGIC: Absent: easy bleeding, easy bruising, lymphadenopathy NEUROLOGIC: Absent: headache, focal weakness, paresthesias, dizziness, unsteady gait, seizure, mental status changes, bladder or bowel incontinence PSYCHIATRIC: Absent: anxiety, depression, suicidal or homicidal ideation, hallucinations. PHYSICAL EXAM: GENERAL: Awake, alert, and fully oriented, in no acute distress. HEAD: Normal with no signs of trauma. EYES: PERRL, sclera anicteric, conjunctiva clear. NECK: Normal ROM, supple without lymphadenopathy, JVD, or masses. LUNGS: Clear to auscultation bilat anteriorly. No wheezes, and no crackles. No accessory muscle use. HEART: Regular rate and rhythm. No murmurs ABDOMEN: Soft, nontender, not distended, normoactive bowel sounds, no guarding, no rebound, no masses. No organomegaly. MUSCULOSKELETAL: Normal ROM at all joints. No bony deformities or tenderness. No CVA tenderness. UPPER EXTREMITIES: 2+ pulses, warm, well-perfused. No cyanosis. Cap refill <2 seconds. No peripheral edema. LOWER EXTREMITIES: 2+ pulses, warm, well-perfused. No calf tenderness. No peripheral edema. NEUROLOGICAL: Normal speech, gait not observed. PSYCH: Cooperative. Good eye contact. Appropriate mood and affect. SKIN: Warm, dry, normal turgor, no rashes or lesions noted. Vital Signs Temperature 98 F 09/26/19 18:49 Pulse Rate 58 L 09/26/19 18:49 Respiratory Rate 18 09/26/19 18:49 Blood Pressure 150/84 09/26/19 18:49 O2 Sat by Pulse Oximetry (%) 98 09/26/19 17:47 Lab Results WBC 7.9 K/mm3 (4.0-10.0) 09/26/19 06:19 RBC 4.51 M/mm3 (4.00-5.60) 09/26/19 06:19 Hgb 13.5 GM/dL (11.7-16.9) 09/26/19 06:19 Hct 39.2 % (35.4-49) 09/26/19 06:19 MCV 87.0 fl (80-96) 09/26/19 06:19 MCHC 34.4 g/dl (32.0-35.9) 09/26/19 06:19 RDW 13.7 % (11.9-15.9) 09/26/19 06:19 Plt Count 179 K/MM3 (134-434) D 09/26/19 06:19 Sodium 141 mmol/L (136-145) 09/26/19 06:19 Potassium 3.8 mmol/L (3.5-5.1) 09/26/19 06:19 Chloride 110 mmol/L (98-107) H 09/26/19 06:19 Carbon Dioxide 24 mmol/L (21-32) 09/26/19 06:19 Anion Gap 7 MMOL/L (8-16) L 09/26/19 06:19 BUN 18.0 mg/dL (7-18) 09/26/19 06:19 Creatinine 1.0 mg/dL (0.55-1.3) 09/26/19 06:19 Random Glucose 112 mg/dL (74-106) H 09/26/19 06:19 Calcium 8.7 mg/dL (8.5-10.1) 09/26/19 06:19 INR 1.05 (0.83-1.09) 09/26/19 11:38 History reviewed and patient examined. NAD, abd soft. Extremities well perfused with normal distal pulses. No petechiae in hands or feet. Sudden onset of left sided abdominal pain last night. Left renal infarct seen on CT scan. No history of thrombophilia or arrhythmia. CT does not suggest source of an embolus. Agree with anticoagulation. Will need CTA of thoracic and upper abdominal aorta to r/o aneurysm or ulcerated plaque. Cardiology evaluation with echo and RAHEEM also needed.
--- NOTE | 2019-09-26 16:29 | PN ---
Teaching Attending Note Name of Resident: Epi Vizcarra (Nephrology) ATTENDING PHYSICIAN STATEMENT I saw and evaluated the patient. I reviewed the resident's note and discussed the case with the resident. I agree with the resident's findings and plan as documented. Pt is a 59 year old male with no significant pmhx who presented with left flank and abdominal pain that began at about 3 am. He went for a ct with contrast which showed a left renal infarct. He denies medical history. He denies hematuria. He recently started working out a few days ago. HE did go for a run yesterday for 2 miles. He denies palpitations. pmhx denies pshx denies nkda socail hx denies family hx non contrib Laboratory Tests 11/12/16 09/26/19 09/26/19 14:45 06:19 06:19 WBC 7.9 Hgb 13.5 Anion Gap 7 L Creatinine 0.7 1.0 Lactic Acid Urine Protein Urine Blood 09/26/19 09/26/19 09/26/19 06:19 06:19 14:23 WBC Hgb Anion Gap Creatinine Lactic Acid 2.1 H 1.3 Urine Protein 1+ H Urine Blood Negative Last Vital Signs Temp Pulse Resp BP Pulse Ox 97.7 F 70 21 H 141/79 97 09/26/19 05:44 09/26/19 16:07 09/26/19 16:07 09/26/19 16:07 09/26/19 16:07 Current Medications Generic Name Dose Route Start Last Admin Trade Name Freq PRN Reason Stop Dose Admin Heparin Sodium (Porcine) 1,000 unit 09/26/19 10:41 Heparin - IVPUSH PRN PRN Heparin Heparin Sodium (Porcine) 5,000 unit 09/26/19 10:41 09/26/19 12:45 Heparin - IVPUSH 5,000 unit PRN PRN Administration Heparin Heparin Sodium/Dextrose 25,000 units in 500 mls @ 20 mls/hr 09/26/19 10:45 12:45 Heparin Infusion - IV 1,000 units/hr TITR VERONICA 20 mls/hr Administration Protocol 1,000 UNITS/HR cardio s1s2 reg pulm clear GI soft ext neg edema neuro awake and alert skin neg rash Impression 1. renal infarct 2. abd pain 3. proteinuria Plan - admit to hospital - monitor on tele - heme eval for hypercoag workup up - unclear if infarct is new or old - monitor renal function - repeat ua in am - cont fluids
[2019-09-26] MEDS ORDERED: ACETAMINOPHEN 325 MG TABLET (FP) PO PRN (17:51)
--- NOTE | 2019-09-26 18:41 | PN ---
Teaching Attending Note Name of Resident: Serene Quiroga ATTENDING PHYSICIAN STATEMENT I saw and evaluated the patient. I reviewed the resident's note and discussed the case with the resident. I agree with the resident's findings and plan as documented. SUBJECTIVE: Feeling better, L abdominal/flank pain much improved. No fever/ chills. No nausea/vomiting. No dysuria/hematuria. OBJECTIVE: Afebrile, Hemodynamicaly stable. Last Vital Signs Temp Pulse Resp BP Pulse Ox 97.7 F 68 24 H 135/64 98 09/26/19 05:44 09/26/19 17:47 09/26/19 17:47 09/26/19 17:47 09/26/19 17:47 HEENT - Atraumatic, Normocephalic. Heart - S1, S2, RRR Lungs - clear to auscultation Abdomen - Soft, L sided abdominal tenderness. Bowel Sounds normal. Extremities - no edema, no calf tenderness. Laboratory Results - last 24 hr 09/26/19 09/26/19 09/26/19 06:19 06:19 06:19 WBC 7.9 RBC 4.51 Hgb 13.5 Hct 39.2 MCV 87.0 MCH 29.9 MCHC 34.4 RDW 13.7 Plt Count 179 D MPV 8.3 Absolute Neuts (auto) 6.1 Neutrophils % 77.1 D Lymphocytes % 15.8 D Monocytes % 4.2 Eosinophils % 2.2 Basophils % 0.7 Nucleated RBC % 0 PT with INR INR PTT (Actin FS) Sodium 141 Potassium 3.8 Chloride 110 H Carbon Dioxide 24 Anion Gap 7 L BUN 18.0 Creatinine 1.0 Est GFR (CKD-EPI)AfAm 95.06 Est GFR (CKD-EPI)NonAf 82.02 Random Glucose 112 H Lactic Acid 2.1 H Calcium 8.7 Total Bilirubin 0.4 AST 30 ALT 40 Alkaline Phosphatase 108 Total Protein 6.8 Albumin 3.6 Urine Color Urine Appearance Urine pH Ur Specific [place] Urine Protein Urine Glucose (UA) Urine Ketones Urine Blood Urine Nitrite Urine Bilirubin Urine Urobilinogen Ur Leukocyte Esterase Urine WBC (Auto) Urine RBC (Auto) Urine Casts (Auto) U Epithel Cells (Auto) U Sm Round Cell (Auto) Urine Bacteria (Auto) 09/26/19 09/26/19 09/26/19 06:19 11:38 14:23 WBC RBC Hgb Hct MCV MCH MCHC RDW Plt Count MPV Absolute Neuts (auto) Neutrophils % Lymphocytes % Monocytes % Eosinophils % Basophils % Nucleated RBC % PT with INR 12.40 INR 1.05 PTT (Actin FS) 33.4 Sodium Potassium Chloride Carbon Dioxide Anion Gap BUN Creatinine Est GFR (CKD-EPI)AfAm Est GFR (CKD-EPI)NonAf Random Glucose Lactic Acid 1.3 Calcium Total Bilirubin AST ALT Alkaline Phosphatase Total Protein Albumin Urine Color Yellow Urine Appearance Clear Urine pH 5.0 Ur Specific [place] 1.024 Urine Protein 1+ H Urine Glucose (UA) Negative Urine Ketones Negative Urine Blood Negative Urine Nitrite Negative Urine Bilirubin Negative Urine Urobilinogen 0.2 Ur Leukocyte Esterase Negative Urine WBC (Auto) 5 Urine RBC (Auto) 2 Urine Casts (Auto) 18 U Epithel Cells (Auto) 6.2 U Sm Round Cell (Auto) None Urine Bacteria (Auto) 5.1 Current Medications Generic Name Dose Route Start Last Admin Trade Name Freq PRN Reason Stop Dose Admin Acetaminophen 650 mg 09/26/19 17:51 Tylenol - PO Q6H PRN Fever Or Pain Level 4-6 Heparin Sodium (Porcine) 1,000 unit 09/26/19 10:41 Heparin - IVPUSH PRN PRN Heparin Heparin Sodium (Porcine) 5,000 unit 09/26/19 10:41 09/26/19 12:45 Heparin - IVPUSH 5,000 unit PRN PRN Administration Heparin Heparin Sodium/Dextrose 25,000 units in 500 mls @ 20 mls/hr 09/26/19 10:45 12:45 Heparin Infusion - IV 1,000 units/hr TITR VERONICA 20 mls/hr Administration Protocol 1,000 UNITS/HR Home Medications Medication Instructions Recorded NK [No Known Home Medication] 11/12/16 ASSESSMENT AND PLAN: 59 year old male with no significant past medical history presents with sudden onset left sided abdominal pain that awoke him at 3am. No nausea/vomiting/ diarhea/dysuria/hematuria. No fever/chills. CT A/P - hypoperfusion to the lower pole of the left kidney consistent with a renal infarct. 1. Acute L Renal Infarct Proteinuria, no hematuria Started on IV Heparin - for eventual transition to oral anticoagulant. Thrombophilia work-up as out-patient by Hematology in the non-acute setting. ECG - Sinus Renato, RBBB. For 24 hours Telemonitoring to exclude occult paroxysmal Atrial fibrillation Echo requested. Dr. Joe Landis discussed with IR Dr Burton - no intervention indicated. Urology, Vascular Surgery, Nephrology consulted. 2. HTN - ?related to RA branch occlusion Will monitor and consider anti-hypertensive if BP persistently high. DVT Px - on Heparin drip.
[2019-09-26 20:36] VITALS: BMI 31.1
[2019-09-27 07:56] LABS: BASO % 0.6 % (0-2.0); EOS % 1.9 % (0-4.5); HEMATOCRIT 38.4 % (35.4-49); HEMOGLOBIN 13.2 GM/dL (11.7-16.9); LYMPH % 22.2 % (8-40); MCH 29.6 pg (25.7-33.7); MCHC 34.4 g/dl (32.0-35.9); MEAN PLT VOLUME 8.4 fl (7.5-11.1); MONO % 7.6 % (3.8-10.2); NEUT % 67.7 % (42.8-82.8); PLATELET COUNT 178 K/MM3 (134-434); RBC 4.46 M/mm3 (4.00-5.60); RDW 13.7 % (11.9-15.9); WHITE BLOOD COUNT 7.7 K/mm3 (4.0-10.0)
[2019-09-27 08:32] LABS: ALBUMIN 3.2 g/dl (3.4-5.0); BILIRUBIN,TOTAL 0.9 mg/dL (0.2-1); BLOOD UREA NITROGEN 11.8 mg/dL (7-18); CREATININE 0.9 mg/dL (0.55-1.3); TOT PROT 6.6 g/dl (6.4-8.2)
--- NOTE | 2019-09-27 08:57 | CONSULT ---
Consultation: CONSULT SERVICE: Hematology/Oncology HISTORY OF PRESENT ILLNESS: 59yo M with no significant past history who originally presented to the ED due to sudden severe L mid-abdominal/flank pain that started yesterday. Pt did not have any exacerbating or remitting patterns with the pain and sought medical attention. During his work-up he was found to have renal infarction of the southern pole of his L kidney confirmed by CT scan with contrast. Pt placed on heparin gtt at ths time. We were asked to medically evaluate this patient for guidance on AC and hypercoaguable workup. Currently patient denies any pain , shortness of breath, cough, hemoptysis, chest pain, palpitations. Pt denies every having this before. No clotting or bleeding disorders in family Pt denies having colonoscopy, however daughter confirms he had 1 year prior without any abnormal report PMHx: None PSHx: L eye surgery SoHx: Tobacco - Denies Alcohol - Social Drugs - Denies Occupation - Family History: No clotting disease Mother - Colon Ca, unknown type Father - ; of natural causes age 100yo REVIEW OF SYSTEMS: As per HPI PHYSICAL EXAMINATION Vital Signs - 24 hr 09/26/19 09/26/19 09/26/19 16:07 17:47 18:49 Temperature 98 F Pulse Rate 58 L Pulse Rate [ 70 68 Apical] Respiratory 21 H 24 H 18 Rate Blood Pressure 150/84 Blood Pressure 141/79 135/64 [Right Arm] O2 Sat by Pulse 97 98 Oximetry (%) 09/26/19 09/26/19 09/27/19 20:33 20:48 01:37 Temperature 98.2 F 98.5 F Pulse Rate 62 61 Pulse Rate [ Apical] Respiratory 20 20 20 Rate Blood Pressure 142/84 142/81 Blood Pressure [Right Arm] O2 Sat by Pulse 97 Oximetry (%) 09/27/19 05:46 Temperature 98.1 F Pulse Rate 51 L Pulse Rate [ Apical] Respiratory 20 Rate Blood Pressure 145/89 Blood Pressure [Right Arm] O2 Sat by Pulse Oximetry (%) GENERAL: Awake, alert, and fully oriented, in no acute distress. HEENT: Nc/AT, EOMI, MAIKEL, sclera anicteric, MMM NECK: No JVD, no lymphadenopathy LUNGS:CTA bilaterally. No wheezes, and no crackles. No accessory muscle use. HEART: RRR, normal S1 and S2 without murmur ABDOMEN: Soft, NT/ND, normoactive bowel sounds, no guarding, no masses. No hepatomegaly. : Normal testicular exam EXTREMITIES: 2+ DP pulses, warm. No calf tenderness. No peripheral edema. PSYCHIATRIC: Cooperative. Good eye contact. Appropriate mood and affect. SKIN: Warm, dry, no rashes or lesions noted. Laboratory Results - last 24 hr 09/26/19 09/26/19 09/26/19 11:38 14:23 19:15 WBC RBC Hgb Hct MCV MCH MCHC RDW Plt Count MPV Absolute Neuts (auto) Neutrophils % Lymphocytes % Monocytes % Eosinophils % Basophils % Nucleated RBC % PT with INR 12.40 INR 1.05 PTT (Actin FS) 33.4 64.3 H Sodium Potassium Chloride Carbon Dioxide Anion Gap BUN Creatinine Est GFR (CKD-EPI)AfAm Est GFR (CKD-EPI)NonAf Random Glucose Lactic Acid 1.3 Calcium Magnesium Total Bilirubin AST ALT Alkaline Phosphatase Total Protein Albumin TSH 09/27/19 09/27/19 09/27/19 06:05 06:05 06:05 WBC 7.7 RBC 4.46 Hgb 13.2 Hct 38.4 MCV 86.0 MCH 29.6 MCHC 34.4 RDW 13.7 Plt Count 178 MPV 8.4 Absolute Neuts (auto) 5.2 Neutrophils % 67.7 Lymphocytes % 22.2 D Monocytes % 7.6 D Eosinophils % 1.9 Basophils % 0.6 Nucleated RBC % 0 PT with INR INR PTT (Actin FS) 57.9 H Sodium 140 Potassium 4.0 Chloride 109 H Carbon Dioxide 26 Anion Gap 5 L BUN 11.8 Creatinine 0.9 Est GFR (CKD-EPI)AfAm 107.97 Est GFR (CKD-EPI)NonAf 93.16 Random Glucose 108 H Lactic Acid Calcium 8.0 L Magnesium 2.0 Total Bilirubin 0.9 AST 112 H ALT 84 H Alkaline Phosphatase 109 Total Protein 6.6 Albumin 3.2 L TSH 2.42 Active Medications Generic Name Dose Route Start Last Admin Trade Name Freq PRN Reason Stop Dose Admin Acetaminophen 650 mg 09/26/19 17:51 Tylenol - PO Q6H PRN Fever Or Pain Level 4-6 Heparin Sodium (Porcine) 1,000 unit 09/26/19 10:41 Heparin - IVPUSH PRN PRN Heparin Heparin Sodium (Porcine) 5,000 unit 09/26/19 10:41 09/26/19 12:45 Heparin - IVPUSH 5,000 unit PRN PRN Administration Heparin Heparin Sodium/Dextrose 25,000 units in 500 mls @ 20 mls/hr 09/26/19 10:45 20:30 Heparin Infusion - IV 1,000 units/hr TITR VERONICA 20 mls/hr Titration Protocol 1,000 UNITS/HR Chest CTA: IMPRESSION: 1. Positive pulmonary emboli involving the right upper and lower lobe branches and less extensively within the left lower lobe branches. 2. No acute pathology within the chest. 3. No evidence of aneurysmal dilatation or dissection involving the thoracic and abdominal aorta. 4. Filling defects within the lower pole arterial arterial branches to the left kidney with hypoperfusion to the lower pole consistent with renal infarction. ASSESSMENT/PLAN: L Renal infarction L segment PE Transaminitis --Unclear etiology of infarction --R/o embolic causes; two alarms with tachycardia, however ? lead placement based on wave-form. May need holter monitor outpatient --Pt can be bridged to Apixaban 10mg BID x7 days and 5mg BID thereafter --Will likely need lifelong AC and hypercoaguable workup including JAK2 and antiphospholipid workup considering multiple thrombus formation --Unable to perform at this time due to the effects of heparin on workup; can be performed on follow-up outpatient --TTE with bubble study noted negative for PFO Case discussed with Dr. Roly Burton, DO - IM PGY-3 Visit type - Emergency Visit Emergency Visit: Yes ED Registration Date: 09/26/19 Care time: The patient presented to the Emergency Department on the above date and was hospitalized for further evaluation of their emergent condition. - New Patient This patient is new to me today: Yes Date on this admission: 09/27/19 - Critical Care Critical Care patient: No ATTENDING PHYSICIAN STATEMENT I saw and evaluated the patient. I reviewed the resident's note and discussed the case with the resident. I agree with the resident's findings and plan as documented. SUBJECTIVE: OBJECTIVE: ASSESSMENT AND PLAN:
--- NOTE | 2019-09-27 09:12 | PN ---
Progress Note (short form) - Note Progress Note: Vascular Surgery: PT without complaints of pain this am. Voiding without difficulty and no blood with urination. Vital Signs Period Temp Pulse Resp BP Sys/Stevenson Pulse Ox Last 24 Hr 98 F-98.5 F 51-70 18-24 135-150/64-89 97-98 GEN: OOB to chair/restroom Back: no CVA tenderness b/l ABD: soft, non-disteded, non-tender INR, PTT INR 1.05 (0.83-1.09) 09/26/19 11:38 CBC, BMP 09/27/19 06:05 09/27/19 06:05 duplex study-negative for b/l LE DVT CTA of chest/abd: b/l PE, no evidence of aortic aneurym/ulcer A/P: 59 yo male with renal infarct/PE Continue IV heparin and they are transitioning to oral AC CT scan of the chest/abd negative for aortic aneurysm or ulcer Pt seen by cardiology and tte completed at bedside prelim without evidence of PFO. At this time, cardiology plan for Fup on TTE Hematology workup No vascular surgery needs at this time, please reconsult as needed D/w Dr. Oneal
--- NOTE | 2019-09-27 11:49 | CON.CARD ---
Consult Consult Specialty:: cardiology Referred by:: hospitalist Reason for Consultation:: possible cardiac source of emboli - History of Present Illness Chief Complaint: abd pain History of Present Illness: 59 year old man with no prior pmh admitted with abd pain that was sudden onset , found to have evidence of renal infarct as well as pulmonary emboli. pt was started on heparin gtt with plan to transition to oral AC pt was seen and examined today in nad. states he feels well currently. denies any complaints. denies any chest pain, sob, palpitations. no pnd, orthopnea or LE edema. - History Source History Provided By: Patient, Medical Record Limitations to Obtaining History: Language Barrier - Alcohol/Substance Use Hx Alcohol Use: Yes (social) - Smoking History Smoking history: Never smoked Have you smoked in the past 12 months: No - Social History ADL: Independent History of Recent Travel: No Home Medications - Allergies Allergies/Adverse Reactions: Allergies Allergy/AdvReac Type Severity Reaction Status Date / Time No Known Allergies Allergy Verified 09/26/19 05:49 - Home Medications Home Medications: Ambulatory Orders NK [No Known Home Medication] 11/12/16 Family Medical History Family History: Denies Review of Systems - Review of Systems Constitutional: denies: No Symptoms, Chills, Diaphoresis, Fever, Lethargy, Loss of Appetite, Malaise, Night Sweats, Unintentional Wgt. Loss, Weakness, Other Eyes: denies: No Symptoms, Blind Spots, Blurred Vision, Double Vision, Eye Pain , Floaters, Photophobia, Recent Change in Vision, Other HENT: denies: No Symptoms, Difficult Swallowing, Ear Discharge, Ear Pain, Epistaxis, Gingival Bleeding, Hearing Loss, Mouth Swelling, Nasal Congestion, Ocular Prosthesis, Throat Pain, Toothache, Ringing in Ears, Other Neck: denies: No Symptoms, Decreased ROM, Lumps, Pain on Movement, Stiffness, Swollen Glands, Tenderness, Other Cardiovascular: denies: No Symptoms, Chest Pain, Edema, Palpitations, Shortness of Breath, Other Respiratory: denies: No Symptoms, Cough, Exercise Intolerance, Hemoptysis, Orthopnea, PND, Snoring, SOB, SOB on Exertion, Wheezing, Other Gastrointestinal: reports: Abdominal Pain. denies: No Symptoms, Bloating, Constipation, Diarrhea, Dysphagia, Indigestion, Melena, Nausea, Rectal Bleeding , Vomiting, Vomiting Blood, Other Genitourinary: denies: No Symptoms, Burning, Discharge, Dysuria, Flank Pain, Frequency, Hematuria, Incontinence, Lesions, Menses, Pain, Testicular Mass, Testicular Pain, Testicular Swelling, Urgency, Vaginal Bleeding, Other Breasts: denies: No Symptoms Reported, See HPI, Breast Implants, Discharge from Nipple, Lumps, Pain, Skin Changes, Other Musculoskeletal: denies: No Symptoms, Back Pain, Crepitus, Decreased ROM, Extremity Pain, Joint Pain, Joint Swelling, Muscle Pain, Muscle Cramps, Muscle Weakness, Other Integumentary: denies: No Symptoms, Blister, Bruising, Change in Color, Eczema, Erythema, Incision, Lesions, Lump, Pallor, Pruritis, Rash, Wound, Other Neurological: denies: No Symptoms, Change in LOC, Change in Speech, Confusion, Dizziness, Headache, Incoordination, Numbness, Parasthesia, Pre-Existing Deficit , Seizure, Syncope, Tremors, Unsteady Gait, Weakness, Other Endocrine: denies: No Symptoms, Excessive Sweating, Flushing, Increased Hunger, Increased Thirst, Intolerance to Cold, Intolerance to Heat, Unexplained Weight Gain, Unexplained Weight Loss, Other Hematology/Lymphatic: denies: No Symptoms, Easily Bruised, Excessive Bleeding, Swollen Glands, Other Psychiatric: denies: No Symptoms, Altered Sleep Pattern, Anxiety, Depression, Hallucinations, Panic, Paranoia, Suicidal, Other Vital Signs: Vital Signs Temperature 98.1 F 09/27/19 05:46 Pulse Rate 51 L 09/27/19 05:46 Respiratory Rate 20 09/27/19 05:46 Blood Pressure 145/89 09/27/19 05:46 O2 Sat by Pulse Oximetry (%) 97 09/26/19 20:48 Constitutional: Yes: No Distress, Calm Eyes: Yes: Conjunctiva Clear, EOM Intact HENT: Yes: Atraumatic, Normocephalic Neck: Yes: Supple, Trachea Midline Respiratory: Yes: Regular, CTA Bilaterally. No: Rales, Rhonchi, SOB, Wheezes Gastrointestinal: Yes: Normal Bowel Sounds, Soft. No: Distention, Tenderness Cardiovascular: Yes: Regular Rate and Rhythm. No: Bradycardia, Tachycardia, Pulse Irregular, Gallop, Rub, Varicosities JVD: No Carotid Bruit: No PMI: Non-Displaced Heart Sounds: Yes: S1, S2. No: Split S2, S3, S4, Clicks, Gallop, Rub, Bruit Murmur: No: Systolic Murmur, Diastolic Murmur Extremities: Yes: WNL Edema: No Peripheral Pulses WNL: Yes Peripheral Pulses: 2+ Left Doralis Pedis, 2+ Right Dorsalis Pedis Neurological: Yes: Alert, Oriented Psychiatric: Yes: Alert, Oriented - Other Data Labs, Other Data: CBC, BMP 09/27/19 06:05 09/27/19 06:05 INR, PTT INR 1.05 (0.83-1.09) 09/26/19 11:38 nsr Echo: Pending Imaging - Results Chest X-ray: Report Reviewed, Image Reviewed EKG: Report Reviewed, Image Reviewed Other: Report Reviewed, Image Reviewed (tele-nsr, no sig arrhythmias thus far) Assessment/Plan 59 year old man with no prior pmh admitted withabd pain that was sudden onset, found to have evidence of renal infarct as well as pulmonary emboli. pt was started on heparin gtt with plan to transition to oral AC states he feels well currently. denies any complaints. denies any chest pain, sob, palpitations. no pnd, orthopnea or LE edema. Thromboembolism -CTA chest reports b/l pulmonary emboli in addition to L renal infarct -pulmonary emboli unlikely cardiac in origin and in light of this finding suspect paradoxical emboli to kidney -bedside tte with bubbles prelim does not show evidence of pfo -telemetry thus far shows no sig arrhythmias -would check LE dopplers to evaluate for DVT -hematology to evaluate for hypercoagulable work up -pt already being treated with full AC with heparin gtt plan to bridge to oral AC -does not require urgent RAHEEM at this time as would not climate change risk assessor currently -fup TTE -cont tele while admitted and on discharge would plan for longer term event monitoring and possible ILR implant if event monitor unrevealing -further consideration for RAHEEM can be made as outpatient.
[2019-09-27] MEDS: HEPARIN INFUSION - 25,000 UNITS/500 ML INFUS.BAG IV SCH (13:31)
--- NOTE | 2019-09-27 13:42 | PN ---
Progress Note, Physician History of Present Illness: Pt seen and examined at bedside. He is awake and alert. He denies shortness of breath. HE denies abd pain. - Current Medication List Current Medications: Active Medications Acetaminophen (Tylenol -) 650 mg PO Q6H PRN PRN Reason: Fever Or Pain Level 4-6 Heparin Sodium (Porcine) (Heparin -) 1,000 unit IVPUSH PRN PRN PRN Reason: Heparin Heparin Sodium (Porcine) (Heparin -) 5,000 unit IVPUSH PRN PRN PRN Reason: Heparin Last Admin: 09/26/19 12:45 Dose: 5,000 unit Heparin Sodium/Dextrose (Heparin Infusion -) 25,000 units in 500 mls @ 20 mls/ hr IV TITR VERONICA; Protocol Last Admin: 09/27/19 13:31 Dose: 1,000 units/hr, 20 mls/hr - Objective Vital Signs: Vital Signs Temperature 98.1 F 09/27/19 05:46 Pulse Rate 51 L 09/27/19 05:46 Respiratory Rate 20 09/27/19 05:46 Blood Pressure 145/89 09/27/19 05:46 O2 Sat by Pulse Oximetry (%) 97 09/26/19 20:48 Constitutional: Yes: Calm Eyes: Yes: Conjunctiva Clear HENT: Yes: Atraumatic Neck: Yes: Supple Cardiovascular: Yes: S1, S2 Respiratory: Yes: CTA Bilaterally Gastrointestinal: Yes: Normal Bowel Sounds, Soft Genitourinary: Yes: WNL Musculoskeletal: Yes: WNL Edema: No Neurological: Yes: Oriented Psychiatric: Yes: Oriented Labs: CBC, BMP 09/27/19 06:05 09/27/19 06:05 INR, PTT INR 1.05 (0.83-1.09) 09/26/19 11:38 Assessment/Plan Current Medications Generic Name Dose Route Start Last Admin Trade Name Freq PRN Reason Stop Dose Admin Acetaminophen 650 mg 09/26/19 17:51 Tylenol - PO Q6H PRN Fever Or Pain Level 4-6 Heparin Sodium (Porcine) 1,000 unit 09/26/19 10:41 Heparin - IVPUSH PRN PRN Heparin Heparin Sodium (Porcine) 5,000 unit 09/26/19 10:41 09/26/19 12:45 Heparin - IVPUSH 5,000 unit PRN PRN Administration Heparin Heparin Sodium/Dextrose 25,000 units in 500 mls @ 20 mls/hr 09/26/19 10:45 13:31 Heparin Infusion - IV 1,000 units/hr TITR VERONICA 20 mls/hr Administration Protocol 1,000 UNITS/HR Impression 1. renal infarct 2. abd pain 3. proteinuria 4. PE 5. r/o hypercoag state Plan - renal function stable - pt on a/c - heme follow up - renal function is stable
--- NOTE | 2019-09-27 13:46 | ECHO ---
Name: SAUL GRULLON S Exam:Adult Echocardiogram Study Date: 09/26/2019 03:21 PM Age: 59 yrs Height: 68 in Weight: 207 lb BSA: 2.1 m2 MMode/2D Measurements & Calculations IVSd: 1.1 cm Ao root diam: 3.3 cm LVIDd: 4.5 cm LA dimension: 3.9 cm LVIDs: 3.1 cm ACS: 2.1 cm LVPWd: 1.2 cm EDV(Teich): 93.6 ml LVOT diam: 2.0 cm ESV(Teich): 37.3 ml LAV (MOD-bp): 90.4 ml TAPSE: 2.1 cm RV S Zachery: 10.3 cm/sec Doppler Measurements & Calculations MV E max zachery: 52.4 cm/sec Ao V2 max: 135.7 cm/sec MV A max zachery: 108.2 cm/sec Ao max P.4 mmHg MV E/A: 0.48 Ao V2 mean: 95.6 cm/sec MV dec time: 0.26 sec Ao mean P.1 mmHg Ao V2 VTI: 27.6 cm RANDALL(I,D): 2.4 cm2 RANDALL(V,D): 2.5 cm2 LV V1 max P.3 mmHg SV(LVOT): 67.2 ml LV V1 mean P.8 mmHg LV V1 max: 103.3 cm/sec LV V1 mean: 60.4 cm/sec LV V1 VTI: 20.8 cm TR max zachery: 253.8 cm/sec PA V2 max: 168.3 cm/sec TR max P.8 mmHg PA max P.3 mmHg PA acc time: 0.12 sec Med Peak E' Zachery: 6.3 cm/sec PA pr(Accel): 23.5 mmHg Med E/e': 8.3 Lat Peak E' Zachery: 12.6 cm/sec Lat E/e': 4.2 Procedure A two-dimensional transthoracic echocardiogram with color flow and Doppler was performed. The patient was in normal sinus rhythm during the exam. Left Ventricle The left ventricle is normal in size. Left ventricular systolic function is normal. Ejection Fraction = 60%. The transmitral spectral Doppler flow pattern is suggestive of impaired LV relaxation. Right Ventricle The right ventricle is normal size. The right ventricular systolic function is normal. Atria The left atrium is mildly dilated. Right atrial size is normal. Hypermobile inter-atrial septum. Color flow doppler demonstrates no evidence of a patent foramen ovale. Mitral Valve The mitral valve is normal. There is trace mitral regurgitation. Tricuspid Valve The tricuspid valve is normal. There is trace tricuspid regurgitation. Aortic Valve The aortic valve is normal in structure and function. The aortic valve is trileaflet. No aortic regur gitation is present. Pulmonic Valve The pulmonic valve is not well seen, but is grossly normal. There is no pulmonic valvular regurgitati on. Great Vessels The aortic root is normal size. Pericardium/Pleura There is no pericardial effusion. Interpretation Summary Left ventricular systolic function is normal. The transmitral spectral Doppler flow pattern is suggestive of impaired LV relaxation. The right ventricular systolic function is normal. The left atrium is mildly dilated. Hypermobile inter-atrial septum. Color flow doppler demonstrates no evidence of a patent foramen ovale. There is trace mitral regurgitation. There is trace tricuspid regurgitation. There is no pericardial effusion. MD Braden Parra 09/27/2019 01:46 PM
--- NOTE | 2019-09-27 13:54 | ECHO ---
Name: MITCHEL SAUL S Exam:Adult Echocardiogram Study Date: 09/27/2019 11:57 AM Age: 59 yrs Reason For Study: r/o PFO Height: 68 in Weight: 204 lb BSA: 2.1 m2 Procedure A limited two-dimensional transthoracic echocardiogram was performed (2D). Images were not obtained f rom all of the standard acoustic windows due to the limited scope of the study. A saline contrast injection w as performed to assess for cardiac shunting. Atria There is no definitive evidence of patent foramen ovale with agitated saline injection. Interpretation Summary There is no definitive evidence of patent foramen ovale with agitated saline injection. MD Braden Parra 09/27/2019 01:53 PM
--- NOTE | 2019-09-27 14:20 | PN ---
Teaching Attending Note Name of Resident: Gualberto Scherer ATTENDING PHYSICIAN STATEMENT I saw and evaluated the patient. I reviewed the resident's note and discussed the case with the resident. I agree with the resident's findings and plan as documented. SUBJECTIVE: Feeling better, L abdominal/flank pain resolved. No fever/chills. No nausea/vomiting. No dysuria/hematuria. No chest pain/palpitations/SOB/cough/ hemoptysis. OBJECTIVE: Afebrile, Hemodynamicaly stable. Last Vital Signs Temp Pulse Resp BP Pulse Ox 98.1 F 51 L 20 145/89 97 09/27/19 05:46 09/27/19 05:46 09/27/19 05:46 09/27/19 05:46 09/26/19 20:48 HEENT - Atraumatic, Normocephalic. Heart - S1, S2, RRR Lungs - clear to auscultation Abdomen - Soft, non-tender. L sided abdominal tenderness resolved. Bowel Sounds normal. Extremities - no edema, no calf tenderness. Laboratory Results - last 24 hr 09/26/19 09/26/19 09/27/19 14:23 19:15 06:05 WBC 7.7 RBC 4.46 Hgb 13.2 Hct 38.4 MCV 86.0 MCH 29.6 MCHC 34.4 RDW 13.7 Plt Count 178 MPV 8.4 Absolute Neuts (auto) 5.2 Neutrophils % 67.7 Lymphocytes % 22.2 D Monocytes % 7.6 D Eosinophils % 1.9 Basophils % 0.6 Nucleated RBC % 0 PTT (Actin FS) 64.3 H Sodium Potassium Chloride Carbon Dioxide Anion Gap BUN Creatinine Est GFR (CKD-EPI)AfAm Est GFR (CKD-EPI)NonAf Random Glucose Lactic Acid 1.3 Calcium Magnesium Total Bilirubin AST ALT Alkaline Phosphatase Total Protein Albumin TSH 09/27/19 09/27/19 06:05 06:05 WBC RBC Hgb Hct MCV MCH MCHC RDW Plt Count MPV Absolute Neuts (auto) Neutrophils % Lymphocytes % Monocytes % Eosinophils % Basophils % Nucleated RBC % PTT (Actin FS) 57.9 H Sodium 140 Potassium 4.0 Chloride 109 H Carbon Dioxide 26 Anion Gap 5 L BUN 11.8 Creatinine 0.9 Est GFR (CKD-EPI)AfAm 107.97 Est GFR (CKD-EPI)NonAf 93.16 Random Glucose 108 H Lactic Acid Calcium 8.0 L Magnesium 2.0 Total Bilirubin 0.9 AST 112 H ALT 84 H Alkaline Phosphatase 109 Total Protein 6.6 Albumin 3.2 L TSH 2.42 Current Medications Generic Name Dose Route Start Last Admin Trade Name Freq PRN Reason Stop Dose Admin Heparin Sodium (Porcine) 1,000 unit 09/26/19 10:41 Heparin - IVPUSH PRN PRN Heparin Heparin Sodium (Porcine) 5,000 unit 09/26/19 10:41 09/26/19 12:45 Heparin - IVPUSH 5,000 unit PRN PRN Administration Heparin Heparin Sodium/Dextrose 25,000 units in 500 mls @ 20 mls/hr 09/26/19 10:45 13:31 Heparin Infusion - IV 1,000 units/hr TITR VERONICA 20 mls/hr Administration Protocol 1,000 UNITS/HR Home Medications Medication Instructions Recorded NK [No Known Home Medication] 11/12/16 ASSESSMENT AND PLAN: 59 year old male with no significant past medical history presents with sudden onset left sided abdominal pain that awoke him at 3am. No nausea/vomiting/ diarhea/dysuria/hematuria. No fever/chills. CT A/P - hypoperfusion to the lower pole of the left kidney consistent with a renal infarct. 1. Acute L Renal Infarct Proteinuria, no hematuria Started on IV Heparin - for eventual transition to oral anticoagulant. Thrombophilia work-up as out-patient by Hematology in the non-acute setting. ECG - Sinus Renato, RBBB. No telemonitoring events. No Atrial Fibrillation. Echo - normal EF, impaired LV relaxation, Dr. Joe Landis discussed with IR Dr Burton - no intervention indicated. Urology, Vascular Surgery, Nephrology consulted. 2. Acute Bilateral Pulmonary Emboli No hemodynamic or respiratory compromise. On Heparin drip. TTE - shows no PFO US Duplex LEs to exclude DVT. Cardio evaluated - no indication for emergent RAHEEM, outpatient event monitor. 3. HTN - ?related to RA branch occlusion Will monitor and consider anti-hypertensive if BP persistently high. 4. Rising LFTs - US Doppler to exclude portal vein thrombosis. DVT Px - on Heparin drip.
--- NOTE | 2019-09-27 16:47 | EKG ---
Test Reason : Blood Pressure : / mmHG Vent. Rate : 054 BPM Atrial Rate : 054 BPM P-R Int : 206 ms QRS Dur : 092 ms QT Int : 452 ms P-R-T Axes : 014 -24 -16 degrees QTc Int : 428 ms SINUS BRADYCARDIA INCOMPLETE RIGHT BUNDLE BRANCH BLOCK MODERATE VOLTAGE CRITERIA FOR LVH, MAY BE NORMAL VARIANT CANNOT RULE OUT SEPTAL INFARCT , AGE UNDETERMINED ABNORMAL ECG Confirmed by MD NIKKY, KENA ([id number]) on 09/27/2019 4:47:44 PM Referred By: Confirmed By:KENA SHER MD
--- NOTE | 2019-09-27 19:47 | PN ---
Physical Exam: SUBJECTIVE: Patient seen and examined. No acute events overnight. Pt asymptomatic not sob, tachy, or abdominal pain, hematuria, fevers, chills. OBJECTIVE: Vital Signs Period Temp Pulse Resp BP Sys/Stevenson Pulse Ox Last 24 Hr 98.0 F-98.6 F 51-112 20- 139-145/57-95 97-98 GENERAL: The patient is awake, alert, and fully oriented, in no acute distress. LUNGS: Breath sounds equal, clear to auscultation bilaterally, no wheezes, no crackles, no accessory muscle use. HEART: Regular rate and rhythm, S1, S2 without murmur, rub or gallop. ABDOMEN: Soft, nontender, nondistended. EXTREMITIES: 2+ pulses, warm, well-perfused, no edema. Laboratory Results - last 24 hr 09/26/19 09/27/19 09/27/19 19:15 06:05 06:05 WBC 7.7 RBC 4.46 Hgb 13.2 Hct 38.4 MCV 86.0 MCH 29.6 MCHC 34.4 RDW 13.7 Plt Count 178 MPV 8.4 Absolute Neuts (auto) 5.2 Neutrophils % 67.7 Lymphocytes % 22.2 D Monocytes % 7.6 D Eosinophils % 1.9 Basophils % 0.6 Nucleated RBC % 0 PTT (Actin FS) 64.3 H Sodium 140 Potassium 4.0 Chloride 109 H Carbon Dioxide 26 Anion Gap 5 L BUN 11.8 Creatinine 0.9 Est GFR (CKD-EPI)AfAm 107.97 Est GFR (CKD-EPI)NonAf 93.16 Random Glucose 108 H Calcium 8.0 L Magnesium 2.0 Total Bilirubin 0.9 AST 112 H ALT 84 H Alkaline Phosphatase 109 Total Protein 6.6 Albumin 3.2 L TSH 2.42 09/27/19 06:05 WBC RBC Hgb Hct MCV MCH MCHC RDW Plt Count MPV Absolute Neuts (auto) Neutrophils % Lymphocytes % Monocytes % Eosinophils % Basophils % Nucleated RBC % PTT (Actin FS) 57.9 H Sodium Potassium Chloride Carbon Dioxide Anion Gap BUN Creatinine Est GFR (CKD-EPI)AfAm Est GFR (CKD-EPI)NonAf Random Glucose Calcium Magnesium Total Bilirubin AST ALT Alkaline Phosphatase Total Protein Albumin TSH Active Medications Generic Name Dose Route Start Last Admin Trade Name Freq PRN Reason Stop Dose Admin Heparin Sodium (Porcine) 1,000 unit 09/26/19 10:41 Heparin - IVPUSH PRN PRN Heparin Heparin Sodium (Porcine) 5,000 unit 09/26/19 10:41 09/26/19 12:45 Heparin - IVPUSH 5,000 unit PRN PRN Administration Heparin Heparin Sodium/Dextrose 25,000 units in 500 mls @ 20 mls/hr 09/26/19 10:45 13:31 Heparin Infusion - IV 1,000 units/hr TITR VERONICA 20 mls/hr Administration Protocol 1,000 UNITS/HR ASSESSMENT/PLAN: 59 year old male with no significant past medical history presents with sudden onset left sided abdominal pain that awoke him at 3am. No nausea/vomiting/ diarhea/dysuria/hematuria. No fever/chills. Images: CT A/P - hypoperfusion to the lower pole of the left kidney consistent with a renal infarct. #Acute L Renal Infarct UA- proteinuria, no hematuria Started on Heparin drip - for eventual transition to oral anticoagulant. Thrombophilia work-up as out-patient by Hematology in the non-acute setting. ECG - Sinus Renato, RBBB. No telemonitoring events. No Atrial Fibrillation noted on tele today. Echo - normal EF, impaired LV relaxation, no sign of PFO on bubble study Dr. Joe Landis discussed with IR Dr Burton - no intervention indicated. Urology, Vascular Surgery, Nephrology consulted. - [facility] who states renal ftn stable will continue to monitor #Acute Bilateral Pulmonary Emboli CTA findings likely chronic given pt asymptomatic, no tachycardia or sob No hemodynamic or respiratory compromise. c/w Heparin drip. TTE - shows no PFO US Duplex LEs to exclude DVT Cardio evaluated - no indication for emergent RAHEEM, outpatient event monitor. #HTN ? if related to RA branch occlusion will monitor and consider anti-hypertensive if BP persistently high. #Rising LFTs - US Doppler to exclude portal vein thrombosis. DVT Ppx - on Heparin drip. Visit type - Emergency Visit Emergency Visit: Yes ED Registration Date: 09/26/19 Care time: The patient presented to the Emergency Department on the above date and was hospitalized for further evaluation of their emergent condition. - New Patient This patient is new to me today: Yes Date on this admission: 09/27/19 - Critical Care Critical Care patient: No - Discharge Referral Referred to [facility] No ATTENDING PHYSICIAN STATEMENT I saw and evaluated the patient. I reviewed the resident's note and discussed the case with the resident. I agree with the resident's findings and plan as documented. SUBJECTIVE: OBJECTIVE: ASSESSMENT AND PLAN:
[2019-09-28] MEDS ORDERED: APIXABAN 5 MG TABLET PO SCH (10:15)
[2019-09-28 10:18] LABS: HEMATOCRIT 40.3 % (35.4-49); HEMOGLOBIN 13.8 GM/dL (11.7-16.9); MCH 29.6 pg (25.7-33.7); MCHC 34.2 g/dl (32.0-35.9); MEAN CELL VOLUME 86.5 fl (80-96); MEAN PLT VOLUME 8.2 fl (7.5-11.1); PLATELET COUNT 187 K/MM3 (134-434); RBC 4.66 M/mm3 (4.00-5.60); RDW 13.5 % (11.9-15.9); WHITE BLOOD COUNT 10.5 K/mm3 (4.0-10.0)
[2019-09-28 10:51] LABS: ALBUMIN 3.3 g/dl (3.4-5.0); BILIRUBIN,TOTAL 0.9 mg/dL (0.2-1); BLOOD UREA NITROGEN 11.8 mg/dL (7-18); CALCIUM 8.5 mg/dL (8.5-10.1); CREATININE 0.9 mg/dL (0.55-1.3); POTASSIUM 3.6 mmol/L (3.5-5.1); TOT PROT 6.8 g/dl (6.4-8.2)
--- NOTE | 2019-09-28 10:52 | PN ---
Teaching Attending Note Name of Resident: Tanika Glass ATTENDING PHYSICIAN STATEMENT I saw and evaluated the patient. I reviewed the resident's note and discussed the case with the resident. I agree with the resident's findings and plan as documented. SUBJECTIVE: Feeling better, L abdominal/flank pain resolved. No fever/chills. No nausea/vomiting. No dysuria/hematuria. No chest pain/palpitations/SOB/cough/ hemoptysis. OBJECTIVE: Tmax 99.8, Hemodynamicaly stable. Last Vital Signs Temp Pulse Resp BP Pulse Ox 98.3 F 65 18 117/70 95 09/28/19 06:00 09/28/19 06:00 09/28/19 08:01 09/28/19 06:00 09/28/19 08:01 Heart - S1, S2, RRR Lungs - clear to auscultation Abdomen - Soft, non-tender. L sided abdominal tenderness resolved. Bowel Sounds normal. Extremities - no edema, no calf tenderness. Laboratory Results - last 24 hr 09/28/19 09/28/19 05:45 09:47 WBC 10.5 H RBC 4.66 Hgb 13.8 Hct 40.3 MCV 86.5 MCH 29.6 MCHC 34.2 RDW 13.5 Plt Count 187 MPV 8.2 PTT (Actin FS) 47.6 H Current Medications Generic Name Dose Route Start Last Admin Trade Name Freq PRN Reason Stop Dose Admin Apixaban 10 mg 09/28/19 10:15 09/28/19 10:19 Eliquis - PO 10 mg BID VERONICA Administration Home Medications Medication Instructions Recorded NK [No Known Home Medication] 11/12/16 ASSESSMENT AND PLAN: 59 year old male with no significant past medical history presents with sudden onset left sided abdominal pain that awoke him at 3am. No nausea/vomiting/ diarhea/dysuria/hematuria. No fever/chills. CT A/P - hypoperfusion to the lower pole of the left kidney consistent with a renal infarct. 1. Acute L Renal Infarct Proteinuria, no hematuria IV Heparin to transition to Eliquis. Thrombophilia work-up as out-patient by Hematology in the non-acute setting. ECG - Sinus Renato, RBBB. No telemonitoring events. No Atrial Fibrillation. Echo - normal EF, impaired LV relaxation, Dr. Joe Landis discussed with IR Dr Burton - no intervention indicated. Vascular Surgery consulted - no need for intervention. Urology, Nephrology evaluated. Hemodynamically Stable. No acute sequelae. 2. Acute Bilateral Pulmonary Emboli No hemodynamic or respiratory compromise. Heparin drip to transition to Eliquis. TTE - shows no PFO US Duplex LEs - no DVT. Cardio evaluated - no indication for emergent RAHEEM, outpatient event monitor. Mild Temp Tmax 99.8, minimal rise in WBC, no leukocytosis - will monitor. No infective symptoms currently. 3. Elevated LFTs - No portal vein thrombosis on CT. 3.9cm lobulated cyst on CT imaging. LFT rise possibly sec to Heparin drip, GI to kindly evaluate. DVT Px - started on Eliquis.
--- NOTE | 2019-09-28 11:05 | PN ---
Progress Note (short form) - Note Progress Note: HPI: No acute events overnight. Pt noted to have subsegmental PE on CTA. Pt remains without any shortness of breath, pleuritic chest pain, abdominal pain, flank, pain. GENERAL: Awake, alert, and fully oriented, in no acute distress. HEENT: Nc/AT, EOMI, MAIKEL, sclera anicteric, MMM NECK: No JVD, no lymphadenopathy LUNGS:CTA bilaterally. No wheezes, and no crackles. No accessory muscle use. HEART: RRR, normal S1 and S2 without murmur ABDOMEN: Soft, NT/ND, normoactive bowel sounds, no guarding, no masses. No hepatomegaly. : Normal testicular exam EXTREMITIES: 2+ DP pulses, warm. No calf tenderness. No peripheral edema. PSYCHIATRIC: Cooperative. Good eye contact. Appropriate mood and affect. SKIN: Warm, dry, no rashes or lesions noted. Laboratory Tests 09/28/19 09/28/19 09:47 09:47 WBC 10.5 H Hgb 13.8 Hct 40.3 Plt Count 187 Sodium 139 Potassium 3.6 Chloride 107 Carbon Dioxide 25 Anion Gap 8 BUN 11.8 Creatinine 0.9 Random Glucose 117 H Calcium 8.5 Total Bilirubin 0.9 AST 93 H ALT 91 H Alkaline Phosphatase 118 H Total Protein 6.8 Albumin 3.3 L Chest CTA: IMPRESSION: 1. Positive pulmonary emboli involving the right upper and lower lobe branches and less extensively within the left lower lobe branches. 2. No acute pathology within the chest. 3. No evidence of aneurysmal dilatation or dissection involving the thoracic and abdominal aorta. 4. Filling defects within the lower pole arterial arterial branches to the left kidney with hypoperfusion to the lower pole consistent with renal infarction. ASSESSMENT/PLAN: L Renal infarction L segment PE Transaminitis --Unclear etiology of infarction and PE --Given both venous and arterial thrombus formation will need hypercoaguable workup outpatient (JAK2 and antiphospholipid in addition) --TTE without PFO/ASD --Pt can be bridged with Apixaban 10mg BID x7 days and BID thereafter Case discussed with Dr. Roly Burton, DO - IM PGY-3
--- NOTE | 2019-09-28 13:25 | PN ---
Progress Note, Physician History of Present Illness: Pt seen and examined at bedside. He is awake and alert. He is eager to go home. - Current Medication List Current Medications: Active Medications Apixaban (Eliquis -) 10 mg PO BID [facility] Last Admin: 09/28/19 10:19 Dose: 10 mg - Objective Vital Signs: Vital Signs Temperature 98.8 F 09/28/19 10:00 Pulse Rate 67 09/28/19 10:00 Respiratory Rate 18 09/28/19 10:00 Blood Pressure 132/78 09/28/19 10:00 O2 Sat by Pulse Oximetry (%) 95 09/28/19 08:01 Constitutional: Yes: Calm Eyes: Yes: Conjunctiva Clear HENT: Yes: Atraumatic Cardiovascular: Yes: S1, S2 Respiratory: Yes: CTA Bilaterally Gastrointestinal: Yes: Normal Bowel Sounds, Soft Genitourinary: Yes: WNL Musculoskeletal: Yes: WNL Edema: No Integumentary: Yes: WNL Neurological: Yes: Oriented Psychiatric: Yes: Oriented Labs: CBC, BMP 09/28/19 09:47 09/28/19 09:47 INR, PTT INR 1.05 (0.83-1.09) 09/26/19 11:38 Assessment/Plan Current Medications Generic Name Dose Route Start Last Admin Trade Name Freq PRN Reason Stop Dose Admin Apixaban 10 mg 09/28/19 10:15 09/28/19 10:19 Eliquis - PO 10 mg BID [facility] Administration Impression 1. renal infarct 2. abd pain 3. proteinuria 4. PE 5. r/o hypercoag state Plan - renal function remains stable - avoid nsaids - monitor renal function - pt on a/c - heme follow up
[2019-09-28 15:01] VITALS: BP 119/70; PULSE 73; TEMP 99
--- NOTE | 2019-09-28 15:22 | CON.GI ---
Consult Consult Specialty:: GI Referred by:: Hospitalist Reason for Consultation:: Abnormal liver chemistries - History of Present Illness Chief Complaint: Left flank pain History of Present Illness: 59M admitted for evaluation of left flank pain. CT scan A/P 09/26 revealed left renal infarct. CTA 09/27 revealed bilateral PE. Called to evaluat abnormal liver chemistries. AST: 93 ALT: 91 ALP: [address] scan revealed a liver cyst. Denies history of liver disease. No RUQ pain. No recent travel. 09/26/19 liver chemistries were normal. 2016 liver chemistries were normal. He received heparin and was started on eliquis during this admission. 09/26 he received 1G IV Acetaminophen. He currently denies further flank pain. His motrher had colon cancer age 75. He has had a colonoscopy last years and states that it was normal. - History Source History Provided By: Patient, Medical Record - Past Medical History Additional Medical History: Denies - Past Surgical History Additional Surgical History: Denies - Alcohol/Substance Use Hx Alcohol Use: Yes (social) History of Substance Use: reports: None - Smoking History Smoking history: Never smoked Have you smoked in the past 12 months: No - Social History Usual Living Arrangement: With Spouse ADL: Independent Occupation: [employer] Place of : [facility] Came to [place] (year[place] 1985 History of Recent Travel: No Home Medications - Allergies Allergies/Adverse Reactions: Allergies Allergy/AdvReac Type Severity Reaction Status Date / Time No Known Allergies Allergy Verified 09/26/19 05:49 - Home Medications Home Medications: Ambulatory Orders NK [No Known Home Medication] 11/12/16 Family Medical History Other Family History: Mother: : Colon cancer 75. Father: at age 100. 5 brothers, 4 sisters: healthy. 1 son, 1 daughter: healthy. No family history of liver disease Review of Systems - Review of Systems Respiratory: denies: SOB Gastrointestinal: reports: Other (left flank pain) Physical Exam-GI Vital Signs: Vital Signs Temperature 99 F 09/28/19 14:00 Pulse Rate 73 09/28/19 14:00 Respiratory Rate 20 09/28/19 14:00 Blood Pressure 119/70 09/28/19 14:00 O2 Sat by Pulse Oximetry (%) 95 09/28/19 08:01 Constitutional: Yes: Calm Eyes: No: Sclera Icterus Cardiovascular: Yes: Regular Rate and Rhythm Respiratory: Yes: CTA Bilaterally Gastrointestinal Inspection: No: Distention ...Auscultate: Yes: Normoactive Bowel Sounds ...Palpate: Yes: Soft. No: Hepatomegaly, Splenomegaly, Tenderness ...Percussion: No: Tympanitic Edema: No (No LE edema) Neurological: Yes: Alert Labs: CBC, BMP 09/28/19 09:47 09/28/19 09:47 INR, PTT INR 1.05 (0.83-1.09) 09/26/19 11:38 Imaging - Results Cat Scan: Report Reviewed, Image Reviewed Problem List - Problems (1) Abnormal liver function tests Assessment/Plan: ? if reactive, ? if secondary to heparin, the IV tylenol he recived or combination. Transaminases have improved a bit while ALP jonah a bit. Avoid hepatotoxic agents, screening hepatitis serologies, ordered hepatic panel for AM Heme and medical team evaluating renal infarcts and B/L PE Code(s): R94.5 - ABNORMAL RESULTS OF LIVER FUNCTION STUDIES
--- NOTE | 2019-09-28 16:31 | DS ---
Physical Exam: SUBJECTIVE: Patient seen and examined. No acute events overnight. Patient denies pain this morning. States that he would like to go home. Denies back pain , abd pain, SOB, fever, N/V/D. OBJECTIVE: Vital Signs Period Temp Pulse Resp BP Sys/Stevenson Pulse Ox Last 24 Hr 98.1 F-99.8 F 65-87 18-20 117-151/57-82 94-95 PHYSICAL EXAM GENERAL: The patient is awake, alert, and fully oriented, in no acute distress. HEAD: Normal with no signs of trauma. EYES: EOMI, no scleral icterus ENT: MMM NECK: Trachea midline, full range of motion, supple. LUNGS: Breath sounds equal, clear to auscultation bilaterally, no wheezes, no crackles, no accessory muscle use. HEART: Regular rate and rhythm, S1, S2 without murmur, rub or gallop. ABDOMEN: Soft, nontender, nondistended, normoactive bowel sounds, no guarding, no rebound EXTREMITIES: 2+ pulses, warm, well-perfused, no edema. NEUROLOGICAL: Normal speech, gait not observed. Sensation grossly intact PSYCH: appropriate mood and affect SKIN: Warm, dry, normal turgor LABS Laboratory Results - last 24 hr 09/28/19 09/28/19 09/28/19 05:45 09:47 09:47 WBC 10.5 H RBC 4.66 Hgb 13.8 Hct 40.3 MCV 86.5 MCH 29.6 MCHC 34.2 RDW 13.5 Plt Count 187 MPV 8.2 PTT (Actin FS) 47.6 H Sodium 139 Potassium 3.6 Chloride 107 Carbon Dioxide 25 Anion Gap 8 BUN 11.8 Creatinine 0.9 Est GFR (CKD-EPI)AfAm 107.97 Est GFR (CKD-EPI)NonAf 93.16 Random Glucose 117 H Calcium 8.5 Total Bilirubin 0.9 AST 93 H ALT 91 H Alkaline Phosphatase 118 H Total Protein 6.8 Albumin 3.3 L HOSPITAL COURSE: Date of Admission:09/26/19 Date of Discharge: 09/28/19 59 year old male with no significant past medical history presented with sudden onset left sided abdominal pain that awoke him overnight. No nausea/vomiting/ diarhea/dysuria/hematuria. CT A/P showed hypoperpusion of the lower pole of the left kidney consistent with a renal infarct. Patient was started on Heparin drip. Patient EKG did not show evidence of atrial fibrillation. Echo showed normal EF, impaired LV relaxation. Vascular surgery was consulted and stated there was no need for intervention, IR agreed as well. Patient was also seen by Urology and Nephrology and no acute intervention was needed. A CTA was also completed which showed bilateral pulmonary embolism without hemodynamic compromise. a TTE bubble study showed no evidence of a PFO. An U/S duplex did not show any evidence of DVT. Patient was evaluated by cardiology who stated there was no indication for emergent RAHEEM, patient to have an outpatient event monitor. Patient noted to have elevated LFTs on bloodwork. Possibly secondary to tylenol or Heparin use. No evidence of portal vein thrombosis on CTA. Hepatitis panel ordered prior to discharge, patient to follow up with GI outpatient for results and instructed to have LFTs checked within 1 week on . Patient was transitioned to Eliquis 10mg BID for 7 days and then instructed to start taking Eliquis 5mg BID and follow up with hematology. On imaging patient noted to have a liver cyst, instructed to follow up with GI for further workup. Patient stable for discharge. Patient to complete hypercoagulability workup outpatient with hematology. Minutes to complete discharge: 36 Discharge Summary Problems reviewed: Yes Reason For Visit: RENAL INFARCTION Current Active Problems Abdominal pain (Acute) Abnormal liver function tests (Acute) Renal infarct (Acute) Condition: Improved - Instructions Diet, Activity, Other Instructions: You were seen in the hospital for complaints of abdominal pain. CT imaging showed you had a blockage in the blood vessels of your left kidney. Additional imaging of your chest showed blood clots in your lungs as well. You also had an incidental finding of a liver cyst on imaging. During your hospital stay, you were started on anticoagulation for further prevention of any new blood clots and were transitioned to an oral blood thinner. You have been given instructions below on how to continue taking the oral blood thinner. An ultrasound of your legs did not show any evidence of blood clots in your legs. Follow up labs Your liver function tests were elevated during this admission, please have your liver function checked again on 10/02/19. Medications We have added the following medications to your home regimen: You were STARTED on Eliquis 10 mg twice a day for 7 days. You should end this dose on October 04, 2019. Then, START taking Eliquis 5 mg twice a day by mouth. You will need close follow up with the machinist mechanic. A referral has been included in your discharge paperwork for the machinist mechanic you were seen by while here. Follow Up Please follow up with your primary care physician within 1 week. If you do not have one, you may make an appointment at [facility]. Please follow up with your director of neighborhood service center, Dr. Parra within 1 week. Please follow up with your vascular surgeon, Dr. Oneal within 1 week for outpatient evaluation of your Please follow up with your plastic sheeting cutter, Dr. Chris within 1 week for outpatient evaluation of your kidney infarct. Please follow up with your machinist mechanic, Dr. Wong within 1 week for outpatient evaluation. You will need blood work done as an outpatient to check for any blood disorders that could have caused the clots found in your lungs. Please follow up with a GI doctor for CT finding of a liver cyst and elevated liver enzymes. This will need to worked up as an outpatient. A referral has been included in your discharge paperwork for the GI doctor you were seen by in the hospital. If you experience worsening abdominal pain, nausea/vomiting, chest pain, shortness of breath or other associated symptoms, please proceed to your nearest emergency room immediately. Referrals: [facility] [place] [facility] [place] [Provider Group] - 1 Week Kenneth Ingram DO [Staff Physician] - Judith Henson MD [Staff Physician] - 1 Week Braden Parra MD [Staff Physician] - 1 Week Flako Chris MD [Staff Physician] - 1 Week Thanh Oneal MD [Staff Physician] - 1 Week Disposition: HOME - Home Medications Comprehensive Discharge Medication List: Ambulatory Orders NK [No Known Home Medication] 11/12/16 This patient is new to me today: Yes Date on this admission: 09/28/19 Emergency Visit: Yes ED Registration Date: 09/26/19 Care time: The patient presented to the Emergency Department on the above date and was hospitalized for further evaluation of their emergent condition. Critical Care patient: No - Discharge Referral Referred to [facility] No ATTENDING PHYSICIAN STATEMENT I saw and evaluated the patient. I reviewed the resident's note and discussed the case with the resident. I agree with the resident's findings and plan as documented. SUBJECTIVE: OBJECTIVE: ASSESSMENT AND PLAN:
--- NOTE | 2019-09-28 17:45 | PN ---
Progress Note, Physician History of Present Illness: pt seen and examined today in nad. states he is feeling well and wants to go home. - Current Medication List Current Medications: Active Medications Apixaban (Eliquis -) 10 mg PO BID VERONICA Last Admin: 09/28/19 10:19 Dose: 10 mg - Objective Vital Signs: Vital Signs Temperature 99 F 09/28/19 14:00 Pulse Rate 73 09/28/19 14:00 Respiratory Rate 20 09/28/19 14:00 Blood Pressure 119/70 09/28/19 14:00 O2 Sat by Pulse Oximetry (%) 95 09/28/19 08:01 Constitutional: Yes: No Distress, Calm Eyes: Yes: Conjunctiva Clear, EOM Intact HENT: Yes: Atraumatic, Normocephalic Neck: Yes: Supple, Trachea Midline Cardiovascular: Yes: Regular Rate and Rhythm, S1, S2. No: Bradycardia, Tachycardia, Pulse Irregular, Bruit, JVD, Gallop, Murmur, Rub, S3, S4, Varicosities Respiratory: Yes: Regular, CTA Bilaterally. No: Rales, Rhonchi, Wheezes Gastrointestinal: Yes: Normal Bowel Sounds, Soft. No: Distention, Tenderness Edema: No Peripheral Pulses WNL: Yes Neurological: Yes: Alert, Oriented Psychiatric: Yes: Alert, Oriented Labs: CBC, BMP 09/28/19 09:47 09/28/19 09:47 INR, PTT INR 1.05 (0.83-1.09) 09/26/19 11:38 - ....Imaging Chest X-ray: Report Reviewed, Image Reviewed EKG: Report Reviewed, Image Reviewed Other: Report Reviewed, Image Reviewed (tele-no sig arrhythmias recorded) Assessment/Plan 59 year old man with no prior pmh admitted withabd pain that was sudden onset, found to have evidence of renal infarct as well as pulmonary emboli. pt was started on heparin gtt with plan to transition to oral AC states he feels well currently. denies any complaints. denies any chest pain, sob, palpitations. no pnd, orthopnea or LE edema. Thromboembolism -CTA chest reports b/l pulmonary emboli in addition to L renal infarct -pulmonary emboli unlikely cardiac in origin and in light of this finding suspect paradoxical emboli to kidney -bedside tte with bubbles does not show definitive evidence of pfo -telemetry thus far shows no sig arrhythmias -would check LE dopplers to evaluate for DVT -hematology to evaluate for hypercoagulable work up -pt started on eliquis -does not require urgent RAHEEM at this time as would not tar heat exchanger cleaner currently -TTE normal LVEF, mild valvular abnl, hypermobile interatrial septum -on discharge would plan for longer term event monitoring and possible ILR implant if event monitor unrevealing -further consideration for RAHEEM can be made as outpatient. -no additional inpatient cardiac work up is needed. Please call with any additional questions.
== END 2019-09-28 18:14 | disposition home or self-care (01) | DRG 468 ==
LOC: JER 05:30 → UNDOADMIN 09:28 → JERBED 09:28 → J4W 18:43
DX: N28.0 Ischemia and infarction of kidney (principal); I26.99 Other pulmonary embolism without acute cor pulmonale; I10 Essential (primary) hypertension; R94.5 Abnormal results of liver function studies; R80.9 Proteinuria, unspecified; R10.9 Unspecified abdominal pain; I45.10 Unspecified right bundle-branch block; K76.89 Other specified diseases of liver
CPT/HCPCS: 36415; 71045-TC-FY; 71275-TC; 74174-TC; 74177-TC; 80053; 81003; 83605; 83735; 84443; 85025; 85027; 85610; 85730; 87086; 93005; 93010; 93306-TC; 93970-TC; 99285-25; J0131; J1644; J7030; Q9967